=== PATIENT | female | born 1960 | race Caucasian/White ===

== ENCOUNTER → 2021-07-22 11:52 | Outpatient (BNVA) | payer MEDICARE, MEDICAID, SELFPAY | PROVIDERS: Visit Provider Nurse Practitioner Family | DX: Z20.822 Contact with and (suspected) exposure to COVID-19 (principal); R05 Cough; R06.02 Shortness of breath | CPT/HCPCS: 71046; 87635 ==

== ENCOUNTER → 2021-08-31 12:00 | Outpatient (BNVA) | payer MEDICARE, MEDICAID, SELFPAY | PROVIDERS: Visit Provider Nurse Practitioner Family | DX: N39.0 Urinary tract infection, site not specified (principal); A49.9 Bacterial infection, unspecified; R11.0 Nausea; R10.2 Pelvic and perineal pain; R30.0 Dysuria; R19.15 Other abnormal bowel sounds | CPT/HCPCS: 74018; 81003; 87086 ==

== ENCOUNTER → 2022-10-19 10:34 | Outpatient (BNVA) | payer MEDICARE, MEDICAID, SELFPAY | PROVIDERS: PCP Family Medicine; Visit Provider Family Medicine | DX: Z79.899 Other long term (current) drug therapy (principal); F41.9 Anxiety disorder, unspecified; M54.16 Radiculopathy, lumbar region; F32.9 Major depressive disorder, single episode, unspecified | CPT/HCPCS: 85025 ==

== ENCOUNTER → 2022-10-20 09:59 | Outpatient (BNVA) | payer MEDICARE, MEDICAID, SELFPAY | PROVIDERS: PCP Family Medicine; Visit Provider Family Medicine | DX: F32.9 Major depressive disorder, single episode, unspecified (principal); F41.9 Anxiety disorder, unspecified; M54.16 Radiculopathy, lumbar region; Z79.899 Other long term (current) drug therapy | CPT/HCPCS: 80053; 80307; 83036; 84443; 85025 ==

== ENCOUNTER 2022-11-06 15:47 | Outpatient (CLI) | payer MEDICARE, MEDICAID, SELFPAY | END 2022-11-06 15:48 | disposition home or self-care (01) | LOC: LAB 15:54 | PROVIDERS: PCP Family Medicine; Visit Provider Family Medicine | DX: F41.9 Anxiety disorder, unspecified (principal) | CPT/HCPCS: 36415 ==

== ENCOUNTER → 2023-04-13 10:50 | Outpatient (BNVA) | payer MEDICARE, MEDICAID, SELFPAY | PROVIDERS: PCP Family Medicine; Visit Provider Nurse Practitioner | DX: R69 Illness, unspecified (principal) | CPT/HCPCS: 87400; 87426 ==

== ENCOUNTER → 2023-04-18 10:24 | Outpatient (BNVA) | payer MEDICARE, MEDICAID, SELFPAY | PROVIDERS: PCP Family Medicine; Visit Provider Family Medicine | DX: R06.2 Wheezing (principal) | CPT/HCPCS: 71046 ==

== ENCOUNTER 2023-04-18 12:17 | Emergency (ER) | payer MEDICARE, SELFPAY ==
[2023-04-18 12:20] VITALS: BP 151/96; PULSE 88; RESP 16; TEMP 36.6; O2SAT 92; BMI 24.8
--- NOTE | 2023-04-18 12:53 | XR_ITS ---
WS: [id number] Exam: XR chest 1V portable [id number] Date/Time of Exam: 04/18/2023 12:55 PM Reason For Exam: cough wheeze Comparison with earlier exam performed on the same day at 11:24 AM. The lungs are hyperinflated and clear. Normal cardiomediastinal silhouette. No pleural effusions. Reg ional bony elements are intact. XR/XR chest 1V portable [id number] IMPRESSION: 1. Pulmonary hyperinflation. No acute finding. No change.
--- NOTE | 2023-04-18 12:55 | W.ED.SOB ---
HPI - SOB/Dyspnea General: Chief Complaint: Shortness of Breath/Dyspnea Stated Complaint: Respiratory Distress Time Seen by Provider: 04/18/23 12:19 Source: patient Mode of arrival: EMS Limitations: no limitations History of Present Illness: HPI Narrative: This patient was transferred to the emergency department via EMS from a local clinic. She has a history of COPD and remains a tobacco user. She states over the past week she has had increasing nonproductive cough, decreased appetite, increased wheezing and shortness of breath. She has had no sustained chest pains and is unaware of any fevers. She states her daughter who lives with her is also been sick. She denies any recent travel, exposure to infectious disease other than what was previously noted etc. She has no history of cardiovascular disease or heart failure. She denies any sustained chest pain. She states that she sleeps fairly well at night although occasionally she gets woken with coughing. Dates she has used her inhaler but not today. She did apparently receive updrafts via EMS prior to arrival. MD elicited complaint: cough Pertinent past history: COPD Timing: progressively worsening Severity: moderate Exacerbating factors: coughing Known history of: COPD Associated symptoms: Deny abdominal pain, chest pain, dizziness, extremity pain, fever(s), lightheadedness, nausea, palpitations, syncope or vomiting Related Data: Home oxygen amount: none Review of Systems Const: Reports: change in appetite; Denies: fever(s) or chills ENMT: Reports: nasal congestion; Denies: odynophagia or nasal discharge Card: Denies: chest pain, palpitations, irregular heart rhythm, lightheadedness, syncope or pre-syncope Resp: Reports: non-productive cough and wheezing; Denies: dyspnea or stridor GI: Denies: abdominal pain, nausea, vomiting or diarrhea : Denies: flank pain, difficulty voiding, dysuria or urinary frequency Musc: Denies: neck pain, back pain, extremity pain or extremity swelling Skin/Breast: Denies: rash Neuro: Denies: headache(s), numbness in extremities, weakness in extremities, dizziness or vertigo All/Imm: Denies: urticaria, throat swelling or tongue swelling PFSH ED PFSH: Medical History Anxiety Chronic hip pain Conversion disorder COPD (chronic obstructive pulmonary disease) Depression Dysuria Exposure to confirmed case of COVID-19 Fatigue GERD (gastroesophageal reflux disease) Hypoactive bowel sounds Insomnia Lower respiratory infection Lumbago syndrome Medication management Nausea Pelvic pain Shortness of breath UTI (urinary tract infection), bacterial Vitamin D deficiency Social History Smoking and tobacco status: current every day smoker Physical Exam Narrative: EXAM NARRATIVE: She is awake and alert she answers questions appropriately and speaks in relatively complete sentences without dyspnea. Const: COMMON NORMALS: no acute distress, average body habitus, patient oriented x3, healthy appearing and alert GENERAL APPEARANCE: cooperative HENMT: COMMON NORMALS: normocephalic, Normal nasal mucous membranes and turbinates present and moist oral mucous membranes HEAD & SCALP: normocephalic NOSE: Normal nasal mucous membranes and turbinates present Eye: COMMON NORMALS: Equal, round and reactive pupils present, EOMs intact bilaterally, conjunctivae normal and no scleral icterus CONJUNCTIVA: Yes conjunctivae normal PUPIL: Yes Equal, round and reactive pupils present Neck/C-Spine: COMMON NORMALS: full ROM, no lymphadenopathy and no JVD Chest: COMMONS NORMALS: normal inspection of the chest Resp: COMMON NORMALS: No retractions and No use of accessory muscles AUSCULTATION: crackles, rhonchi and wheezes Cardio: COMMON NORMALS: no JVD, regular rate, regular rhythm, No murmurs present (Cardio) and Peripheral pulses 2+ throughout RATE: regular rate RHYTHM: regular rhythm PERIPHERAL PULSES: Peripheral pulses 2+ throughout GI: COMMON NORMALS: Normal to inspection, nondistended, normoactive bowel sounds present, Soft to palpation and non-tender PALPATION: Yes Soft to palpation : COMMON NORMALS: Yes no CVA tenderness BLADDER/KIDNEY EXAM: Yes no CVA tenderness Back/Pelvis: COMMON NORMALS: no CVA tenderness, thoracic and lumbar spine normal to inspection, no thoracic nor lumbar tenderness and thoraco-lumbar ROM normal Extremity: COMMON NORMALS: normal to inspection, capillary refill normal, no joint enlargement, no clubbing, cyanosis or edema, no calf tenderness and no pedal edema Neuro: COMMON NORMALS: patient oriented x3, moves all extremities, no focal motor deficits and no sensory deficits noted SENSORIUM/ORIENTATION: Yes alert CRANIAL NERVES: Yes CN normal except as noted Psych: COMMON NORMALS: mental status grossly normal Skin: COMMON NORMALS: no rashes or lesions noted and turgor normal GENERAL SKIN EXAM: no rashes or lesions noted and turgor normal Course Reevaluation(s): Reevaluation #1: Patient ambulated about the emergency department off oxygen and maintain oxygen saturation greater than 90%. Examination revealed her to be comfortable without any dyspnea with conversation and no accessory muscle usage. Reauscultation of her chest revealed no wheezing or stridor. Chest x-ray was reassuring and laboratories were also reassuring. We discussed treatment options and given her current response to treatment I think is appropriate for us to continue her management on an outpatient basis. She has DuoNeb at home to use and we will increase her prednisone to 60 mg daily for the next 7 days and then back to her usual dose. She is also has nasal steroid inhaler etc. She has no infiltrative process she is afebrile because of her history of COPD with exacerbation we will put her on doxycycline for 7 days. Time: 16:10 Vital Signs: Vital signs: Vital Signs Temperature 97.8 F 04/18/23 12:20 Pulse Rate 86 04/18/23 14:58 Respiratory Rate 18 04/18/23 15:57 Blood Pressure 133/95 04/18/23 14:58 Pulse Oximetry 90 04/18/23 15:57 Oxygen Delivery Me thod Room Air 04/18/23 15:57 Oxygen Flow Rate 2 04/18/23 14:58 MDM - SOB/Dyspnea Medical Decision Making Patient with a known history of COPD was referred to the emergency department for further evaluation and treatment as indicated. She has been having increasing wheezing and nonproductive cough without fevers. She had no chest pain and no history of cardiovascular issues. She apparently was seen in outpatient clinic and then sent to the emergency department. Upon evaluation here she had expiratory wheezes and rhonchi. No other significant findings on her clinical examination. Differential diagnoses included exacerbation COPD pneumonia primary likely etiologies of her current presentation. Chest x-ray was reassuring. Laboratories were also reassuring. She remained stable and received the benefit of a prolonged updraft treatment, IV fluids and continued reassessment. Her condition improved with treatment in the emergency department her chest x-ray did not reveal any signs of pneumonia we discussed treatment options and she at this point time is stable to continue treatment on an outpatient basis for an exacerbation of COPD without evidence of pneumonia or other worrisome conditions. We discussed return precautions in detail. She is stable at this time. Medical Records I reviewed the patient's medical records. Lab Data I reviewed the patient's lab results. 04/18/23 12:42 04/18/23 12:42 Labs/Radiology: Radiology Impressions Chest X-Ray 04/18/23 12:53 IMPRESSION: 1. Pulmonary hyperinflation. No acute finding. No change. Laboratory Results WBC 9.2 10^3/uL (4.0-10.0) 04/18/23 12:42 RBC 4.69 10^6/uL (4.1-5.3) 04/18/23 12:42 Hgb 13.5 g/dL (11.5-15.3) 04/18/23 12:42 Hct 42.0 % (37.0-47.0) 04/18/23 12:42 MCV 89.6 fl (81-99) 04/18/23 12:42 MCH 28.8 pg (28.0-34.0) 04/18/23 12:42 MCHC 32.1 g/dL (30.0-36.0) 04/18/23 12:42 RDW 15.0 % (12.1-15.1) 04/18/23 12:42 Plt Count 368 10^3/cmm (130-400) 04/18/23 12:42 MPV 11.0 fL (7.4-10.4) H 04/18/23 12:42 Neut % (Auto) 51.4 % 04/18/23 12:42 Lymph % (Auto) 40.9 % 04/18/23 12:42 Benson % (Auto) 6.7 % 04/18/23 12:42 Eos % (Auto) 0.2 % 04/18/23 12:42 Baso % (Auto) 0.3 % 04/18/23 12:42 Neut # (Auto) 4.71 10^3/uL (1.8-7.7) 04/18/23 12:42 Lymph # (Auto) 3.8 10^3/uL (0.8-4.8) 04/18/23 12:42 Benson # (Auto) 0.6 10^3/uL (0.2-0.9) 04/18/23 12:42 Eos # (Auto) 0.0 10^3/uL (0.0-0.8) 04/18/23 12:42 Baso # (Auto) 0.0 10^3/uL (0.0-0.1) 04/18/23 12:42 Nucleated RBC % (auto) 0 % 04/18/23 12:42 Nucleated RBCs # 0.0 /100WBC 04/18/23 12:42 Sodium 140 mmol/L (136-145) 04/18/23 12:42 Potassium 3.3 mmol/L (3.5-5.1) L 04/18/23 12:42 Chloride 105 mmol/L (98-107) 04/18/23 12:42 Carbon Dioxide 22 mmol/L (22-29) 04/18/23 12:42 Anion Gap 16.3 (5-19) 04/18/23 12:42 BUN 22 mg/dL (8-23) 04/18/23 12:42 Creatinine 0.8 mg/dL (0.5-0.9) 04/18/23 12:42 GFR Calculation 72.2 mL/min (90-130) L 04/18/23 12:42 Glucose 104 mg/dL (65-115) 04/18/23 12:42 Calculated Osmolality 294 mOsm/kg (285-295) 04/18/23 12:42 Calcium 9.2 mg/dL (8.5-10.5) 04/18/23 12:42 Total Bilirubin 0.2 mg/dL (0.15-1.2) 04/18/23 12:42 AST 18 U/L (0-32) 04/18/23 12:42 ALT 15 U/L (0-33) 04/18/23 12:42 Alkaline Phosphatase 120 U/L (35-105) H 04/18/23 12:42 Total Protein 7.5 g/dL (6.6-8.7) 04/18/23 12:42 Albumin 4.5 g/dL (3.5-5.2) 04/18/23 12:42 Globulin 3.0 g/dL (1.3-4.6) 04/18/23 12:42 Discharge Plan Discharge Patient Disposition: Home Clinical Impression: Acute exacerbation of chronic obstructive airways disease Condition: Stable Prescriptions: New doxycycline hyclate 100 mg capsule 100 mg PO BID 7 Days Qty: 14 0RF prednisone 20 mg tablet 20 mg PO BID 7 Days Qty: 14 0RF No Action ipratropium-albuterol 0.5 mg-3 mg(2.5 mg base)/3 mL solution for nebulization 3 ml inhalation Q4H PRN (Reason: wheezing) 30 Days Qty: 90 0RF cyanocobalamin (vitamin B-12) 1,000 mcg/mL kit 1,000 mcg IM .weekly 28 Days Qty: 4 0RF melatonin 5 mg capsule 5 mg PO DAILY PRN (Reason: sleep) 30 Days Qty: 30 1RF benzonatate 200 mg capsule 200 mg PO TID PRN (Reason: cough) Qty: 30 0RF fluticasone propionate [Flonase Allergy Relief] 50 mcg/actuation spray,suspension 1 spray intranasal DAILY Qty: 16 0RF Rx Instructions: administer into each nostril albuterol sulfate [ProAir HFA] 90 mcg/actuation HFA aerosol inhaler 2 puff inhalation Q6H PRN (Reason: shortness of breath or wheezing) Qty: 8.5 3RF fluticasone propion-salmeterol [Advair Diskus] 100-50 mcg/dose blister with device 1 inh inhalation BID Qty: 60 3RF clonazepam 1 mg tablet 1 mg PO Q8H PRN (Reason: anxiety) 30 Days Qty: 90 3RF Rx Instructions: donot fill before 03/20/2023 citalopram 40 mg tablet 40 mg PO DAILY 90 Days Qty: 90 1RF zolpidem 10 mg tablet 10 mg PO .nightly 30 Days Qty: 30 3RF pantoprazole 20 mg tablet,delayed release (DR/EC) 20 mg PO DAILY 90 Days Qty: 90 1RF gabapentin 600 mg tablet 600 mg PO Q8H 90 Days Qty: 270 1RF oxybutynin chloride 5 mg tablet extended release 24hr 5 mg PO DAILY 30 Days Qty: 30 6RF ceftriaxone 1 gram recon soln 1 g IM ONCE Qty: 1 0RF dexamethasone sodium phosphate 10 mg/mL solution 10 mg IM ONCE Qty: 1 0RF baclofen 5 mg tablet See Rx Instructions .ROUTE .COMPLEX Qty: 60 0RF Dose Instruction: TAKE ONE TABLET BY MOUTH TWICE DAILY NEEDED FOR LOW BACK PAIN FOR 30 DAYS Rx Instructions: TAKE ONE TABLET BY MOUTH TWICE DAILY NEEDED FOR LOW BACK PAIN FOR 30 DAYS meloxicam 7.5 mg tablet See Rx Instructions .ROUTE .COMPLEX Qty: 60 0RF Dose Instruction: TAKE 1 TABLET BY MOUTH TWICE DAILY NEEDED FOR BACK PAIN FOR 30 DAYS Rx Instructions: TAKE 1 TABLET BY MOUTH TWICE DAILY NEEDED FOR BACK PAIN FOR 30 DAYS Discharge Orders: Discharge ED (Routine); Ordered 04/18/23 Ordered By: Armani Preciado Referrals: Brent Ortiz MD [Primary Care Provider] - Discharge Diet: Advance as tolerated Discharge Activity: Increase activity as tolerated Patient Instructions: Opioid Safety, Pain Management Activity Restrictions/Additional Instructions: As we discussed we have recommended that you continue your breathing treatments at home 4-6 times daily as needed for wheezing or shortness of breath. We also prescribed an increased dose of your prednisone to take for the next 7 days. We have also provided a prescription for an antibiotic to take for the next 7 days. It is important you drink at least 1 to 2 quarts of water daily to help keep hydrated. If your symptoms do not continue to improve as we expect or if they worsen anytime with fevers, increasing cough increasing shortness of breath etc. return to this or the nearest emergency department. Coding Level of Care Code ED [employer]ar[employer] Operator for Nancy Huang
[2023-04-18] MEDS: dexamethasone 10 mg/mL INJ IVP (13:06)
[2023-04-18] MEDS: sodium chloride 0.9% 1,000 ML 999 ML IV (13:06)
[2023-04-18 13:12] VITALS: BP 151/98; PULSE 84; RESP 18; O2SAT 94; O2SAT 99
[2023-04-18 13:12] LABS: Basophils % 0.3 %; Eosinophils % 0.2 %; Hemoglobin 13.5 g/dL (11.5-15.3); Lymphocytes # 3.8 10^3/uL (0.8-4.8); Lymphocytes % 40.9 %; Mean Corpuscular HGB Conc 32.1 g/dL (30.0-36.0); Mean Corpuscular Hemoglobin 28.8 pg (28.0-34.0); Mean Corpuscular Volume 89.6 fl (81-99); Monocytes # 0.6 10^3/uL (0.2-0.9); Monocytes % 6.7 %; Neutrophils # 4.71 10^3/uL (1.8-7.7); Neutrophils % 51.4 %; Nucleated Red Blood Cells % 0 %; Platelet Count 368 10^3/cmm (130-400); Red Blood Count 4.69 10^6/uL (4.1-5.3); White Blood Count 9.2 10^3/uL (4.0-10.0)
[2023-04-18] MEDS: ipratropium-albuterol 3 mL Neb 9 ML INHALATION (13:12)
[2023-04-18 13:24] VITALS: PULSE 93
[2023-04-18 13:33] LABS: Alanine Aminotransferase 15 U/L (0-33); Albumin Level 4.5 g/dL (3.5-5.2); Alkaline Phosphatase 120 U/L (35-105); Anion Gap 16.3 (5-19); Aspartate Amino Transferase 18 U/L (0-32); Blood Urea Nitrogen 22 mg/dL (8-23); Calcium 9.2 mg/dL (8.5-10.5); Carbon Dioxide 22 mmol/L (22-29); Chloride 105 mmol/L (98-107); Glomerular Filtration Rate 72.2 mL/min (90-130); Glucose 104 mg/dL (65-115); Osmolality Calculated 294 mOsm/kg (285-295); Potassium 3.3 mmol/L (3.5-5.1); Sodium 140 mmol/L (136-145); Total Bilirubin 0.2 mg/dL (0.15-1.2); Total Protein 7.5 g/dL (6.6-8.7)
[2023-04-18 14:03] LABS: Slide Review Slide Review Perform
[2023-04-18 14:12] VITALS: BP 133/95; PULSE 89; RESP 18; O2SAT 97
[2023-04-18 14:58] VITALS: BP 133/95; PULSE 86; RESP 18; O2SAT 98
[2023-04-18 15:57] VITALS: RESP 18; O2SAT 90
== END 2023-04-18 17:30 | disposition home or self-care (01) ==
PROVIDERS: Emergency Provider Emergency Medicine; PCP Family Medicine
DX: J44.1 Chronic obstructive pulmonary disease with (acute) exacerbation (principal); F17.210 Nicotine dependence, cigarettes, uncomplicated; Z20.822 Contact with and (suspected) exposure to COVID-19; R06.2 Wheezing
CPT/HCPCS: 71045; 71046; 80053; 85025; 87400; 87426; 94640; 96361; 96374; 99284; J1100; J7030

== ENCOUNTER → 2023-07-19 10:18 | Outpatient (BNVA) | payer MEDICARE, SELFPAY | PROVIDERS: PCP Family Medicine; Visit Provider Nurse Practitioner Family | DX: M70.62 Trochanteric bursitis, left hip; M16.0 Bilateral primary osteoarthritis of hip | CPT/HCPCS: 20610; 73523; 99214; J1100; J3301; J3490 ==

== ENCOUNTER → 2023-08-02 13:07 | Outpatient (BNVA) | payer MEDICARE, SELFPAY | PROVIDERS: PCP Family Medicine; Visit Provider Nurse Practitioner Family | DX: M70.61 Trochanteric bursitis, right hip | CPT/HCPCS: 20610; 73502; 99213 ==

== ENCOUNTER 2023-12-31 01:52 | Inpatient (IN) | payer MEDICARE, SELFPAY ==
[2023-12-31] VITALS (102 sets, daily range): BP systolic 88–159; BP diastolic 52–93; PULSE 71–120; RESP 11–27; TEMP 36.2–37.8; O2SAT 83–100
--- NOTE | 2023-12-31 01:57 | P.HP_ITS ---
Providers/Chief Complaint Admitting Physician: Rico Stanley MD Primary Care Provider: SANDOR Barber Chief Complaint: Sepsis / UTI History of Present Illness Silke Camp is a 63 year old female with a past medical history significant for coronary artery disease with history of OH, GERD, conversion disorder, anxiety, depression, tobacco use disorder, and COPD who initially presented to an outside hospital at [facility] with left inguinal and left low back pain x 2 to 3 days. She endorses associated symptoms of rigors, myalgias, fatigue, nausea and poor oral intake. She describes the pain as shooting down into her left inguinal area. She describes it as severe at times. She received Toradol at the outside hospital which she thinks may have upset her stomach. Denies other alleviating or aggravating factors. She denies any recent UTIs. Denies any recent antibiotic use. At the outside hospital, patient was found to have sepsis. Her heart rate was persistently above 100. Her blood pressure was soft with readings in the 90s-100s/50s-60s. Labs revealed a CBC of 15.3>8.6/28.4<397, BMP 137/4.5/100/16/16/0.82. D-dimer 4.6. Troponin within normal limits. Lactic acid 6.9. Urinalysis with 1+ leukocyte Estrace, nitrite positive, 2+ protein, 11-25 WBCs, 3+ bacteria. RSV, rapid flu, and COVID-19 were negative. Chest x- ray showed interstitial prominence which was read by radiologist as could be seen with volume overload, viral illness, or bronchiolitis; no focal consolidations. CT abdomen/pelvis without contrast showed no evidence of obstructive uropathy or urolithiasis. There is mild asymmetric left perinephric stranding which is nonspecific but could be secondary to infection/pyelonephritis. CTA of the chest showed no pulmonary embolism but did reveal advanced emphysematous changes as well as a pulmonary nodules with the largest measuring up to 9 mm. Blood cultures were obtained. She was treated with Rocephin, Toradol, and 2 L of IV fluids bolus. Patient denies a known history of anemia. Her hemoglobin in March 2023 was 13.5 in [facility]. Patient does note that she did have a heart attack in August 2023. She was treated at [facility]. She states that she did receive a stent and was placed on blood thinners at that time. She denies any blood in her stool. She denies melena. She reports she had a colonoscopy about 3 years ago [place] that had some benign polyps but otherwise was unremarkable. She denies any family history of known anemia. Review of Systems Narrative: Endorses fatigue for the past couple months. Endorses shortness of breath with chronic cough, otherwise a complete review of systems was obtained and is negative except as stated in HPI. Medications/Allergies Home Medications Medication Instructions Recorded Confirmed Last Taken Type melatonin 5 mg capsule 5 mg PO DAILY PRN sleep 30 days 11/25/21 12/31/23 Unknown Rx #30 caps fluticasone 100 mcg-salmeterol 50 1 inh inhalation BID #60 ea 10/19/22 12/31/23 12/30/23 17:30 Rx mcg/dose blistr powdr for inhalation (Advair Diskus) pantoprazole 20 mg tablet,delayed 20 mg PO DAILY 90 days #90 tabs 03/16/23 12/31/23 12/30/23 11:00 Rx release ipratropium 0.5 mg-albuterol 3 mg 3 ml inhalation QID PRN wheezing 04/19/23 12/31/23 Unknown Rx (2.5 mg base)/3 mL nebulization #90 mL soln nebulizer machine #1 ea 04/19/23 12/31/23 Unknown Rx gabapentin 600 mg tablet 600 mg PO Q8H 90 days #270 tabs 08/29/23 12/31/23 12/30/23 11:00 Rx aspirin 81 mg chewable tablet 81 mg PO DAILY 90 days #90 tabs 09/04/23 12/31/23 12/30/23 11:00 Rx atorvastatin 80 mg tablet 80 mg PO DAILY 90 days #90 tabs 09/04/23 12/31/23 12/30/23 11:00 Rx losartan 50 mg tablet 50 mg PO DAILY 09/04/23 12/31/23 12/30/23 11:00 History metoprolol succinate 25 mg 12.5 mg (1/2 x 25 mg) PO DAILY 90 09/04/23 12/31/23 12/30/23 11:00 Rx tablet,extended release 24 hr days #90 tabs nitroglycerin 0.4 mg sublingual 0.4 mg sublingual Q5M PRN chest 09/04/23 12/31/23 Unknown Rx tablet pain 90 days #90 tabs prasugrel 10 mg tablet (Effient) 10 mg PO DAILY 90 days #90 tabs 09/04/23 12/31/23 12/30/23 11:00 Rx albuterol sulfate 90 mcg/actuation 2 puff inhalation Q6H PRN 11/21/23 12/31/23 Unknown Rx aerosol inhaler (ProAir HFA) shortness of breath or wheezing #8.5 grams citalopram 40 mg tablet 40 mg PO DAILY 90 days #90 tabs 11/21/23 12/31/23 12/30/23 11:00 Rx clonazepam 1 mg tablet 1 mg PO Q8H PRN anxiety 30 days 11/21/23 12/31/23 Unknown Rx #90 tabs fluticasone propionate 50 1 spray intranasal DAILY #16 grams 11/21/23 12/31/23 Unknown Rx mcg/actuation nasal spray,suspension (Flonase Allergy Relief) zolpidem 10 mg tablet 10 mg PO .nightly 30 days #30 tabs 11/21/23 12/31/23 Unknown Rx Allergies Allergy/AdvReac Type Severity Reaction Status Date / Time No Known Allergies Allergy Verified 12/31/23 01:59 PFSH Acute PFSH: Medical History Needs smoking cessation education STEMI (ST elevation myocardial infarction) Greater trochanteric bursitis of right hip Greater trochanteric bursitis of left hip Hip osteoarthritis PNA (pneumonia) COPD exacerbation Diffuse wheezing Overactive bladder Stress incontinence Sciatica Dental infection Sinusitis Encounter for smoking cessation counseling Allergic rhinitis Lumbar radiculopathy Colon polyp Patient reports several colon polyps removed at [place], and states she has not had followup. History of ST elevation myocardial infarction (STEMI) STEMI with Stent Placement 08/31/2023 Treated at [facility] syndrome Vitamin D deficiency Fatigue Medication management UTI (urinary tract infection), bacterial Dysuria Pelvic pain Nausea Hypoactive bowel sounds Lower respiratory infection Shortness of breath Exposure to confirmed case of COVID-19 Chronic hip pain Insomnia GERD (gastroesophageal reflux disease) Conversion disorder Anxiety Depression COPD (chronic obstructive pulmonary disease) Surgical History History of heart artery stent Family History Father No problems noted. Denies family history of Anemia Social History Smoking and tobacco/nicotine status: current every day tobacco/nicotine user Alcohol intake: never Substance/Drug Use: never Physical Exam Narrative: General: Patient is awake. Appears fatigued. Pleasant. Head: Normocephalic. Atraumatic. EOM intact. Dry mucous membranes. Neck: No JVD. Cardiovascular: Tachycardic with regular rhythm. No gallops. No murmurs. No peripheral edema. Lungs: Breath sounds diminished bilateral bases, no use of accessory muscles, no crackles or wheezes. Moderate air movement. On nasal cannula support. Cough segmentally throughout exam. Skin: No jaundice. No rashes. Abdomen: Normal bowel sounds, abdomen soft and nontender. Back: Left CVA tenderness present. Rectal: Rectal exam not performed since no symptoms indicated blood loss. Extremities: No cyanosis or clubbing. Musculoskeletal: No swollen or erythematous joints. Neurological: Moves all 4 extremities. No myoclonus. A&P Assessment and plan (1) Sepsis: SIRS: Tachycardic, leukocytosis Source: Acute complicated urinary tract infection complicated by left-sided pyelonephritis Endorgan damage: Acute hypoxia, lactic acidosis > 6 Blood culture Urinalysis with urine culture Status post Rocephin outside hospital, will continue Status post 2 L IV fluid at outside hospital, patient's weight is 66 kg, she is exceeded the 30 mL/kg BW Telemetry monitoring Strict I's and O's Supportive care Qualifiers: Sepsis type: sepsis due to unspecified organism Sepsis acute organ dysfunction status: with acute organ dysfunction Severe sepsis acute organ dysfunction type: acute respiratory failure Acute respiratory failure type: with hypoxia Severe sepsis shock status: without septic shock Qualified Code(s): A41.9 - Sepsis, unspecified organism; R65.20 - Severe sepsis without septic shock; J96.01 - Acute respiratory failure with hypoxia (2) Hypoxia: Acute hypoxia in the setting of sepsis; history of COPD, heart disease Obtain chest x-ray, prior radiology read from outside hospital on there x-ray appreciated Check NT proBNP (3) Normocytic anemia: Normocytic anemia Broad differential Awaiting home med update, suspect antiplatelet treatment given recent stent Patient denies active bleeding, denies GI blood loss, denies melena Admission labs pending here, further workup pending CBC result (4) Coronary artery disease: Patient reports myocardial infarction treated at [facility] in August Her post hospital follow-up visit with Dr. Ortiz reviewed Unable to locate the records from this hospitalization in the EMR Plan to continue chronic cardiac medications after home list is updated Qualifiers: Coronary Disease-Associated Artery/Lesion type: resighini artery [place] vs. transplanted heart: resighini heart Associated angina: unspecified whether angina present Qualified Code(s): I25.10 - Atherosclerotic heart disease of resighini coronary artery without angina pectoris (5) COPD (chronic obstructive pulmonary disease): Patient with cough Chest x-ray ordered Supplemental oxygen as needed Breathing treatments as needed Qualifiers: COPD type: unspecified COPD Qualified Code(s): J44.9 - Chronic obstructive pulmonary disease, unspecified (6) Tobacco use: Reports she is cutting back on cigarette use Would benefit from cessation (7) Depression: Continue home meds, pending home medication list update Qualifiers: Depression Type: unspecified Qualified Code(s): F32.A - Depression, unspecified Plan DVT prophylaxis: Heparin CODE STATUS: Full code Attestations Medical Necessity Statement*: Patient transferred from outside hospital after presenting with low back and abdominal pains, found to have sepsis from urinary source with expected hospitalization to cross 2 midnights for appropriate treatment of sepsis. Coding Level of Care Code Acute Code for [facility] Fwd Diagnoses Sepsis with acute hypoxic respiratory failure without septic shock, due to unspecified organism A41.9; R65.20; J96.01 Sepsis type: sepsis due to unspecified organism Sepsis acute organ dysfunction status: with acute organ dysfunction Severe sepsis acute organ dysfunction type: acute respiratory failure Acute respiratory failure type: with hypoxia Severe sepsis shock status: without septic shock Hypoxia R09.02 Normocytic anemia D64.9 Coronary artery disease involving resighini coronary artery of resighini heart, unspecified whether angina present I25.10 Coronary Disease-Associated Artery/Lesion type: resighini artery [place] vs. transplanted heart: resighini heart Associated angina: unspecified whether angina present Chronic obstructive pulmonary disease, unspecified COPD type J44.9 COPD type: unspecified COPD Tobacco use Z72.0 Depression, unspecified depression type F32.A Depression Type: unspecified
[2023-12-31] MEDS: acetaminophen 325 mg Tablet 650 MG PO ×3 (02:39→19:46)
[2023-12-31] MEDS: ondansetron 2 mg/ML SDV 2 mL 4 MG IVP (02:39)
--- NOTE | 2023-12-31 02:43 | XRR_ITS ---
PROCEDURE INFORMATION: Exam: XR Chest Exam date and time: 12/31/2023 5:25 AM Age: 63 years old Clinical indication: Shortness of breath; Additional info: SOB, evaluate for pulmonary edema TECHNIQUE: Imaging protocol: Radiologic exam of the chest. Views: 1 view. COMPARISON: CR XR chest 1V portable [id number] 04/18/2023 12:58 PM FINDINGS: Lungs: Hypoventilatory changes at the left lung base. Mild chronic interstitial prominence. Pleural spaces: Unremarkable. No pleural effusion. No pneumothorax. Heart/Mediastinum: Unremarkable. No cardiomegaly. Bones/joints: Unremarkable. XR/XR chest 1V portable [id number] IMPRESSION: No acute cardiopulmonary disease.
[2023-12-31 03:07] LABS: Basophils # 0.1 10^3/uL (0.0-0.1); Basophils % 0.4 %; Hematocrit 24.9 % (36-47); Lymphocytes # 0.9 10^3/uL (0.8-4.8); Lymphocytes % 4.1 %; Mean Corpuscular HGB Conc 29.3 g/dL (30-55); Mean Corpuscular Hemoglobin 25.2 pg (27-33); Mean Corpuscular Volume 85.9 fl (85-98); Mean Platelet Volume 9.9 fL (7.4-10.4); Monocytes # 0.6 10^3/uL (0.2-0.9); Monocytes % 2.5 %; Neutrophils # 20.92 10^3/uL (1.8-7.7); Neutrophils % 92.5 %; Nucleated Red Blood Cells % 0 %; Platelet Count 311 10^3/cmm (157-399); Red Cell Distribution Width 15.6 % (12.1-15.1); White Blood Count 22.64 10^3/uL (3.29-11.43)
[2023-12-31 03:37] LABS: NT Pro B Type Natriuretic Pept 2517 pg/mL (0-125); Procalcitonin 10.81 ng/mL (0-0.5)
[2023-12-31 03:48] LABS: Alanine Aminotransferase 29 U/L (0-33); Albumin Level 3.5 g/dL (3.5-5.2); Alkaline Phosphatase 151 U/L (35-105); Aspartate Amino Transferase 31 U/L (0-32); Blood Urea Nitrogen 13 mg/dL (8-23); Calcium 7.9 mg/dL (8.5-10.5); Carbon Dioxide 17 mmol/L (22-29); Chloride 106 mmol/L (98-107); Globulin 2.8 g/dL (1.3-4.6); Glomerular Filtration Rate 62.8 mL/min (90-130); Glucose 118 mg/dL (65-115); Magnesium 1.6 mg/dL (1.7-2.3); Osmolality Calculated 283 mOsm/kg (285-295); Phosphorus 2.3 mg/dL (2.5-4.5); Sodium 136 mmol/L (136-145); Total Bilirubin 0.3 mg/dL (0.15-1.2); Total Protein 6.3 g/dL (6.6-8.7)
[2023-12-31 03:54] LABS: Ferritin 25 ng/mL (15-150); Iron 8 ug/dL (37-145); Lactate Dehydrogenase 179 U/L (135-214); Percent Saturation 2.5 % (20-50); Total Iron Binding Capacity 311 mcg/dl; Unsaturated Iron Binding 303 ug/dL (112-347)
[2023-12-31] MEDS: pantoprazole 40 mg SDV 80 MG IVP (04:01)
[2023-12-31] MEDS: HYDROmorphone 1 mg/mL INJ 1 mL 0.2 MG IVP (04:02)
[2023-12-31 04:10] LABS: Vitamin B12 747 pg/mL (232-1245)
[2023-12-31] MEDS: gabapentin 300 mg Capsule 600 MG PO ×3 (04:11→19:39)
[2023-12-31 04:45] LABS: Reflex Lactate Order REFLEX LACTIC ORDERD
[2023-12-31 06:14] LABS: Lactic Acid level (Lactate) 0.9 mmol/L (0.5-2.2)
[2023-12-31] MEDS: budesonide 0.5 mg/2 mL Neb INHALATION ×2 (08:13→19:57)
[2023-12-31] MEDS: ipratropium-albuterol 3 mL Neb INHALATION (08:13)
[2023-12-31] MEDS: pantoprazole 40 mg SDV IVP ×2 (08:54→20:46)
[2023-12-31] MEDS: atorvastatin 40 mg Tablet 80 MG PO (08:55)
[2023-12-31] MEDS: prasugrel 10 MG Tablet PO (08:55)
[2023-12-31] MEDS: aspirin 81 mg Chew Tablet PO (08:55)
[2023-12-31] MEDS: citalopram 20 mg Tablet 40 MG PO (08:55)
[2023-12-31] MEDS: sucralfate 1 gm/10 mL Oral Liq UDC PO ×3 (08:55→19:39)
[2023-12-31 09:40] LABS: Add Urine Microscopic? YES; Bilirubin Urine Neg (Negative); Blood Urine 2+ (Negative); Glucose Urine UA Norm (Normal); Ketones Urine 1+ (Negative); Leukocyte Esterase Urine 1+ (Negative); Nitrate Urine Positive (Negative); Protein Urine 1+ (Negative); Specific Gravity, Urine 1.015 (1.005-1.030); Urine Appearance SL Hazy (CLEAR); Urine Color Yellow (Yellow); Urobilinogen Urine Neg (Negative); pH Urine 5 (5-7)
[2023-12-31 09:41] LABS: Add Urine Culture? Yes; Bacteria Urine 1+ /hpf; Hyaline Casts Urine RARE /lpf; Mucus Urine TRACE /hpf; RBC Urine 0-4 /hpf (0-2); Squamous Epithelial Cell Urine 0-4 /hpf (0-5); WBC Urine 55-80 /hpf (0-5)
[2023-12-31] MEDS: cefTRIAXone 2,000 MG in sodium chloride 0.9% (plus) 50 ML 100 MG IV (10:15)
[2023-12-31] MEDS: lactated ringers 500 ML 999 ML IV (11:32)
[2023-12-31] MEDS: midodrine 5 mg TABLET 10 MG PO ×2 (11:33→19:39)
[2023-12-31 11:56] LABS: Hematocrit 28.2 % (36-47)
[2023-12-31 12:10] LABS: Lactic Sepsis W/Reflex 1.3 mmol/L (0.5-2.2)
[2023-12-31] MEDS: meropenem 1,000 MG in sodium chloride 0.9% (plus) 50 ML 100 MG IV ×2 (12:37→20:46)
[2023-12-31] MEDS: HYDROmorphone 1 mg/mL INJ 1 mL 0.5 MG IVP ×2 (12:44→16:22)
--- NOTE | 2023-12-31 13:51 | PC.NURSE ---
Daughter's(Aleacia) updated phone number [phone]
--- NOTE | 2023-12-31 14:46 | PM.PN ---
Subjective Subjective: Patient was seen this morning, she continues to feel nauseous, feels unwell, fatigue, malaise, denies any fevers but does have chills, denies any bloody or black stools, she is taking her aspirin and Effient, denies any history of GI bleeds, no bloody or black stools, she recently had a stent placed to her LAD last year, denies any active chest pain, Vitals/I&O/Wt Last Vital Signs Temp 98.0 F 12/31/23 12:11 Pulse 72 12/31/23 12:11 Resp 18 12/31/23 12:44 BP 119/71 12/31/23 12:48 Pulse Ox 93 12/31/23 12:11 O2 Del Method Nasal Cannula 12/31/23 12:11 O2 Flow Rate 2 12/31/23 08:18 12/30/23 12/31/23 12/31/23 22:59 06:59 14:59 Intake Total 0 / 0 1310 / 1310 Output Total 200 / 200 400 / 400 Balance -200 / -200 910 / 910 Weight last 48 hrs Weight 66.678 kg Weight 66.678 kg Physical Exam Const: COMMON NORMALS: no acute distress and patient oriented x3 Resp: COMMON NORMALS: normal respiratory effort, No retractions, No use of accessory muscles and clear to auscultation bilaterally AUSCULTATION: clear to auscultation bilaterally Cardio: COMMON NORMALS: regular rate, regular rhythm, S1 normal heart sound present and S2 normal heart sound present RATE: regular rate RHYTHM: regular rhythm HEART SOUNDS: S1 normal heart sound present and S2 normal heart sound present GI: COMMON NORMALS: Normal to inspection, nondistended, normoactive bowel sounds present and non-tender Extremity: COMMON NORMALS: no pedal edema Neuro: COMMON NORMALS: patient oriented x3 Psych: COMMON NORMALS: mental status grossly normal Data 12/31/23 14:09 12/31/23 02:46 Micro: Microbiology 12/31/23 04:19 Blood Culture - Preliminary Blood SPECIMEN COLLECTED 12/31/23 04:15 Blood Culture - Preliminary Blood SPECIMEN COLLECTED A&P Assessment and plan (1) Sepsis: SIRS: Criteria met Source: Acute complicated urinary tract infection complicated by left-sided pyelonephritis Endorgan damage: Acute hypoxia, lactic acidosis > 6 Blood culture Urinalysis with urine culture Status post Rocephin outside hospital, will expand antibiotic coverage to meropenem She continues to have hypotension on MedSurg, will give her a liter bolus, she is receiving 1 unit PRBC, will start on midodrine 10 mg 3 times daily Telemetry monitoring Strict I's and O's Supportive care Qualifiers: Sepsis type: sepsis due to unspecified organism Sepsis acute organ dysfunction status: with acute organ dysfunction Severe sepsis acute organ dysfunction type: acute respiratory failure Acute respiratory failure type: with hypoxia Severe sepsis shock status: without septic shock Qualified Code(s): A41.9 - Sepsis, unspecified organism; R65.20 - Severe sepsis without septic shock; J96.01 - Acute respiratory failure with hypoxia (2) Hypoxia: Acute hypoxia in the setting of sepsis; history of COPD, heart disease Current active smoker (3) Normocytic anemia: Normocytic anemia Broad differential History of STEMI, requiring transfer to tertiary level center, for stent placement to LAD (4) Coronary artery disease: Patient reports myocardial infarction treated at [facility] in August Her post hospital follow-up visit with Dr. Ortiz reviewed Unable to locate the records from this hospitalization in the EMR Plan to continue chronic cardiac medications after home list is updated Qualifiers: Coronary Disease-Associated Artery/Lesion type: yuhaaviatam artery [place] vs. transplanted heart: yuhaaviatam heart Associated angina: unspecified whether angina present Qualified Code(s): I25.10 - Atherosclerotic heart disease of yuhaaviatam coronary artery without angina pectoris (5) COPD (chronic obstructive pulmonary disease): Patient with cough Chest x-ray ordered Supplemental oxygen as needed Breathing treatments as needed Qualifiers: COPD type: unspecified COPD Qualified Code(s): J44.9 - Chronic obstructive pulmonary disease, unspecified (6) Tobacco use: Reports she is cutting back on cigarette use Would benefit from cessation (7) Depression: Continue home meds, pending home medication list update Qualifiers: Depression Type: unspecified Qualified Code(s): F32.A - Depression, unspecified (8) Acute anemia: - Acute anemia -Multifactorial, from GI bleed and or septic shock, sepsis (9) GI bleed: - Concerns for slow GI bleed -She denies any bloody or black stools, no active hemorrhage -She does have evidence of iron deficiency anemia -Highly suspicious for slow GI bleed -Protonix 40 IV twice daily, Carafate 1 g every 6 hours -Monitor hemodynamics closely -She is on aspirin and Effient for recent history of LAD stent has received 4 doses this morning -Will consider to hold versus continue based on clinical progress, as this is a difficult decision on the one hand she has a high risk of adverse cardiovascular event stent closure if aspirin Effient worse to be stopped but on the other hand she has a high risk of worsening of her GI bleeding, anemia, hypotension if they are continued -I had a detailed discussion with patient at bedside about this difficult decision, shared decision making, she is agreeable to hold aspirin and Effient if necessary -Spoke to general surgery, Dr. Molina, consider EGD and colonoscopy based on clinical progress (10) Shock: - Multifactorial -Septic shock from pyelonephritis as above elevated lactic acid -Component of acute anemia, possible hemorrhagic shock related to GI bleed -Some component related to hypovolemia -Will receive 500 mL bolus on MedSurg -Receiving a unit of blood -Started on midodrine 10 mg 3 times daily -Monitor blood pressures closely -If she remains hypotensive we will move her down to the ICU for pressors (11) Pyelonephritis: Plan DVT prophylaxis: Heparin CODE STATUS: Full code Attestations Medical Necessity Statement*: Patient requires hospitalization for sepsis, UTI, left pyelonephritis, shock, GI bleed Diagnoses Sepsis with acute hypoxic respiratory failure without septic shock, due to unspecified organism A41.9; R65.20; J96.01 Sepsis type: sepsis due to unspecified organism Sepsis acute organ dysfunction status: with acute organ dysfunction Severe sepsis acute organ dysfunction type: acute respiratory failure Acute respiratory failure type: with hypoxia Severe sepsis shock status: without septic shock Hypoxia R09.02 Normocytic anemia D64.9 Coronary artery disease involving yuhaaviatam coronary artery of yuhaaviatam heart, unspecified whether angina present I25.10 Coronary Disease-Associated Artery/Lesion type: yuhaaviatam artery [place] vs. transplanted heart: yuhaaviatam heart Associated angina: unspecified whether angina present Chronic obstructive pulmonary disease, unspecified COPD type J44.9 COPD type: unspecified COPD Tobacco use Z72.0 Depression, unspecified depression type F32.A Depression Type: unspecified Acute anemia D64.9 GI bleed K92.2 Shock R57.9 Pyelonephritis N12
--- NOTE | 2023-12-31 14:54 | ECG_ITS ---
[facility] Test Date: 2023-12-31 Pat Name: Silke Camp Department: Room: 251 Gender: Female [employer]: : 1960 Requested By: Brent Ortiz Order Number: [id number] Doron MD: Edgar Velasco M.D. Measurements Intervals [place] Rate: 80 P: 73 AR: 206 QRS: 85 QRSD: 88 T: 65 QT: 403 QTc: 465 Interpretive Statements SINUS RHYTHM NONSPECIFIC T-WAVE ABNORMALITY No previous ECG available for comparison Electronically Signed On 01-01-2024 16:31:47 MANAGER E COMMERCE by Edgar Velasco M.D. [id number]
--- NOTE | 2023-12-31 15:32 | PC.NURSE ---
report called to Katie in ICU, patient's daughter Yamilka notified of change in status and patient being moved to ICU 8 at this time.
[2023-12-31 16:24] LABS: Troponin(5th) Baseline 19 ng/L (0-10)
--- NOTE | 2023-12-31 16:42 | ECG_ITS ---
[facility] Test Date: 2023-12-31 Pat Name: Silke Camp Department: Room: [facility]08 Gender: Female Private Duty Nurse: : 1960 Requested By: Brent Ortiz Order Number: [id number] Doron MD: Edgar Velasco M.D. Measurements Intervals [place] Rate: 69 P: 70 [place]: 210 QRS: 76 QRSD: 79 T: 51 QT: 400 QTc: 429 Interpretive Statements SINUS RHYTHM WITH FIRST DEGREE AV BLOCK POSSIBLE RIGHT VENTRICULAR CONDUCTION DELAY [RSR (QR) IN V1/V2] NONSPECIFIC T-WAVE ABNORMALITY Compared to ECG 12/31/2023 15:37:58 First degree AV block now present T-wave abnormality still present Electronically Signed On 01-01-2024 16:33:26 SALES PERFORMANCE ANALYST by Edgar Velasco M.D. [id number]
[2023-12-31 18:50] LABS: Troponin 5 2HR 19.82 ng/L (0-10); Troponin 5 2HR Delta 0.82 ABS# (0-10)
--- NOTE | 2023-12-31 20:54 | ECG_ITS ---
[facility] Test Date: 2023-12-31 Pat Name: Silke Camp Department: Room: [facility]08 Gender: Female [employer]visor [employer]: : 1960 Requested By: Brent Ortiz Order Number: [id number] Doron MD: Edgar Velasco M.D. Measurements Intervals [place] Rate: 94 P: 68 [place]: 188 QRS: 57 QRSD: 103 T: 56 QT: 357 QTc: 448 Interpretive Statements SINUS RHYTHM NONSPECIFIC ST & T-WAVE ABNORMALITY Compared to ECG 12/31/2023 16:42:50 First degree AV block no longer present T-wave abnormality still present Electronically Signed On 01-01-2024 16:33:05 MARKETING SALES SUPERVISOR by Edgar Velasco M.D. [id number]
[2023-12-31 21:19] LABS: Hematocrit 25.7 % (36-47)
[2023-12-31 21:37] LABS: Troponin 5 6HR 33.61 ng/L (0-10)
[2023-12-31 21:47] LABS: Troponin 5 6HR Delta 14.61 ng/L (0-12)
[2023-12-31] MEDS: zolpidem 5 mg Tablet 10 MG PO (23:34)
[2024-01-01] VITALS (245 sets, daily range): BP systolic 88–141; BP diastolic 54–85; PULSE 61–95; RESP 14–26; TEMP 36.4–37.1; O2SAT 87–100
[2024-01-01] MEDS: sucralfate 1 gm/10 mL Oral Liq UDC PO ×4 (01:55→19:51)
[2024-01-01 02:17] LABS: Basophils # 0.1 10^3/uL (0.0-0.1); Basophils % 0.4 %; Eosinophils # 0.1 10^3/uL (0.0-0.8); Eosinophils % 0.6 %; Hematocrit 26.1 % (36-47); Lymphocytes # 1.2 10^3/uL (0.8-4.8); Lymphocytes % 9.2 %; Mean Corpuscular HGB Conc 30.3 g/dL (30-55); Mean Corpuscular Hemoglobin 26.3 pg (27-33); Mean Platelet Volume 9.8 fL (7.4-10.4); Monocytes # 1.1 10^3/uL (0.2-0.9); Monocytes % 8.6 %; Neutrophils # 10.17 10^3/uL (1.8-7.7); Neutrophils % 80.8 %; Nucleated Red Blood Cells % 0 %; Platelet Count 229 10^3/cmm (157-399); Red Cell Distribution Width 15.6 % (12.1-15.1); White Blood Count 12.59 10^3/uL (3.29-11.43)
[2024-01-01 02:30] LABS: INR 1.03 (0.8-1.2)
[2024-01-01 02:40] LABS: Alanine Aminotransferase 24 U/L (0-33); Albumin Level 3.1 g/dL (3.5-5.2); Alkaline Phosphatase 130 U/L (35-105); Anion Gap 13.4 (5-19); Aspartate Amino Transferase 33 U/L (0-32); Blood Urea Nitrogen 13 mg/dL (8-23); C Reactive Protein 124.6 mg/L (0.0-4.9); Calcium 8.2 mg/dL (8.5-10.5); Carbon Dioxide 21 mmol/L (22-29); Chloride 108 mmol/L (98-107); Glucose 88 mg/dL (65-115); Osmolality Calculated 286 mOsm/kg (285-295); Phosphorus 2.7 mg/dL (2.5-4.5); Potassium 4.4 mmol/L (3.5-5.1); Sodium 138 mmol/L (136-145); Total Bilirubin 0.2 mg/dL (0.15-1.2); Total Protein 6.1 g/dL (6.6-8.7)
[2024-01-01 02:41] LABS: Lactate (Lactic Acid level) 0.7 mmol/L (0.5-2.2)
[2024-01-01 02:56] LABS: Procalcitonin 9.03 ng/mL (0-0.5)
[2024-01-01] MEDS: gabapentin 300 mg Capsule 600 MG PO ×3 (03:26→19:51)
[2024-01-01] MEDS: midodrine 5 mg TABLET 10 MG PO ×3 (03:26→18:38)
[2024-01-01] MEDS: acetaminophen 325 mg Tablet 650 MG PO ×3 (03:48→21:44)
[2024-01-01] MEDS: meropenem 1,000 MG in sodium chloride 0.9% (plus) 50 ML 100 MG IV ×3 (04:51→21:12)
[2024-01-01] MEDS: pantoprazole 40 mg SDV IVP ×2 (08:35→21:12)
[2024-01-01] MEDS: atorvastatin 40 mg Tablet 80 MG PO (08:36)
[2024-01-01] MEDS: aspirin 81 mg Chew Tablet PO (08:36)
[2024-01-01] MEDS: citalopram 20 mg Tablet 40 MG PO (08:36)
[2024-01-01] MEDS: fluticasone nasal spray 16gm Btl 1 SPRAY INTRANASAL (08:38)
[2024-01-01 08:47] LABS: Hematocrit 26.5 % (36-47)
[2024-01-01] MEDS: ipratropium-albuterol 3 mL Neb INHALATION (08:50)
[2024-01-01] MEDS: budesonide 0.5 mg/2 mL Neb INHALATION ×2 (08:50→19:58)
[2024-01-01] MEDS: prasugrel 10 MG Tablet PO (09:12)
--- NOTE | 2024-01-01 13:28 | P.CONIM_ITS ---
Providers/Reason For Consult 2 Consulting Physician/Specialty*: Dr. Rudy Molina, DO/General surgery Reason for Consult*: Iron deficiency anemia Attending Physician: Brent Ortiz MD Primary Care Provider: SANDOR Barber History of Present Illness History of Present Illness Silke Camp is a 63 year old female who presented to the hospital with left inguinal pain. She is found to have pyelonephritis. She has been treated for this and reports that her left inguinal pain has greatly resolved. Palpation makes the pain worse. Nothing seems to make the pain better. The pain does radiate to her left flank. She was having nausea and vomiting but denies any diarrhea, hematemesis, hematochezia and/or melena. She is found to have iron deficiency anemia by the hospitalist. General surgery was consulted for possible endoscopy. Review of Systems 2 General: Reports: 10 or more systems reviewed and unremarkable except in HPI and below Medications/Allergies Home Medications Medication Instructions Recorded Confirmed Last Taken Type melatonin 5 mg capsule 5 mg PO DAILY PRN sleep 30 days 11/25/21 12/31/23 Unknown Rx #30 caps fluticasone 100 mcg-salmeterol 50 1 inh inhalation BID #60 ea 10/19/22 12/31/23 12/30/23 17:30 Rx mcg/dose blistr powdr for inhalation (Advair Diskus) pantoprazole 20 mg tablet,delayed 20 mg PO DAILY 90 days #90 tabs 03/16/23 12/31/23 12/30/23 11:00 Rx release ipratropium 0.5 mg-albuterol 3 mg 3 ml inhalation QID PRN wheezing 04/19/23 12/31/23 Unknown Rx (2.5 mg base)/3 mL nebulization #90 mL soln nebulizer machine #1 ea 04/19/23 12/31/23 Unknown Rx gabapentin 600 mg tablet 600 mg PO Q8H 90 days #270 tabs 08/29/23 12/31/23 12/30/23 11:00 Rx aspirin 81 mg chewable tablet 81 mg PO DAILY 90 days #90 tabs 09/04/23 12/31/23 12/30/23 11:00 Rx atorvastatin 80 mg tablet 80 mg PO DAILY 90 days #90 tabs 09/04/23 12/31/23 12/30/23 11:00 Rx losartan 50 mg tablet 50 mg PO DAILY 10/17/23 02/12/24 02/11/24 11:00 History metoprolol succinate 25 mg 12.5 mg (1/2 x 25 mg) PO DAILY 90 09/04/23 12/31/23 12/30/23 11:00 Rx tablet,extended release 24 hr days #90 tabs nitroglycerin 0.4 mg sublingual 0.4 mg sublingual Q5M PRN chest 09/04/23 12/31/23 Unknown Rx tablet pain 90 days #90 tabs prasugrel 10 mg tablet (Effient) 10 mg PO DAILY 90 days #90 tabs 09/04/23 12/31/23 12/30/23 11:00 Rx albuterol sulfate 90 mcg/actuation 2 puff inhalation Q6H PRN 11/21/23 12/31/23 Unknown Rx aerosol inhaler (ProAir HFA) shortness of breath or wheezing #8.5 grams citalopram 40 mg tablet 40 mg PO DAILY 90 days #90 tabs 11/21/23 12/31/23 12/30/23 11:00 Rx clonazepam 1 mg tablet 1 mg PO Q8H PRN anxiety 30 days 11/21/23 12/31/23 Unknown Rx #90 tabs fluticasone propionate 50 1 spray intranasal DAILY #16 grams 11/21/23 12/31/23 Unknown Rx mcg/actuation nasal spray,suspension (Flonase Allergy Relief) zolpidem 10 mg tablet 10 mg PO .nightly 30 days #30 tabs 11/21/23 12/31/23 Unknown Rx Allergies Allergy/AdvReac Type Severity Reaction Status Date / Time No Known Allergies Allergy Verified 12/31/23 01:59 Current Medications Generic Name Dose Route Start Last Admin Trade Name Freq PRN Reason Stop Dose Admin Acetaminophen 650 mg 12/31/23 01:59 01/01/24 21:44 Acetaminophen 325 Mg Tablet PO 650 mg Q6H PRN Administration Mild/Mod Pain Or Temp >/= 101 Albuterol/Ipratropium 3 ml 12/31/23 03:09 01/02/24 08:34 Ipratropium-Albuterol 3 Ml Neb INHALATION 3 ml Q4H PRN Administration SHORTNESS OF BREATH Aspirin 81 mg 12/31/23 09:00 01/02/24 08:05 Aspirin 81 Mg Chew Tablet PO Not Given DAILY MOE Atorvastatin Calcium 80 mg 12/31/23 09:00 01/02/24 08:03 Atorvastatin 40 Mg Tablet PO 80 mg DAILY MOE Administration Budesonide 0.5 mg 12/31/23 08:00 01/02/24 08:34 Budesonide 0.5 Mg/2 Ml Neb INHALATION 0.5 mg BID.RESPIRATORY MOE Administration Citalopram Hydrobromide 40 mg 12/31/23 09:00 01/02/24 08:02 Citalopram 20 Mg Tablet PO 40 mg DAILY MOE Administration Fluticasone Propionate 1 spray 12/31/23 09:00 01/02/24 08:05 Fluticasone Nasal [place] 16gm Btl INTRANASAL 1 spray DAILY MOE Administration Gabapentin 600 mg 12/31/23 04:15 01/02/24 11:49 Gabapentin 300 Mg Capsule PO 600 mg Q8H MOE Administration Meropenem 1,000 mg/ Sodium 50 mls @ 100 mls/hr 12/31/23 11:15 01/02/24 04:23 Chloride IV 100 mls/hr Q8H MOE Administration Protocol Sodium Chloride 1,000 mls @ 30 mls/hr 01/02/24 12:45 01/02/24 12:55 Sodium Chloride 0.9% IV 01/03/24 12:44 30 mls/hr .Q24H MOE Administration Midodrine 5 mg 01/02/24 08:10 01/02/24 08:28 Midodrine 5 Mg Tablet PO 5 mg Q8H MOE Administration Ondansetron HCl 4 mg 12/31/23 01:59 12/31/23 02:39 Ondansetron 2 Mg/Ml Sdv 2 Ml IVP 4 mg Q8H PRN Administration vomiting, or N/V if npo Pantoprazole Sodium 40 mg 12/31/23 09:00 01/02/24 08:03 Pantoprazole 40 Mg Sdv IVP 40 mg Q12H MOE Administration Prasugrel 10 mg 12/31/23 09:00 01/02/24 08:02 Prasugrel 10 Mg Tablet PO 10 mg DAILY MOE Administration Sucralfate 1 gm 12/31/23 08:15 01/02/24 08:04 Sucralfate 1 Gm/10 Ml Oral Liq Udc PO 1 gm Q6H MOE Administration Zolpidem Tartrate 10 mg 12/31/23 21:00 01/02/24 00:59 Zolpidem 5 Mg Tablet PO 10 mg BEDTIME MOE Administration PFSH Acute 2 PFSH: Medical History Needs smoking cessation education STEMI (ST elevation myocardial infarction) Greater trochanteric bursitis of right hip Greater trochanteric bursitis of left hip Hip osteoarthritis PNA (pneumonia) COPD exacerbation Diffuse wheezing Overactive bladder Stress incontinence Sciatica Dental infection Sinusitis Encounter for smoking cessation counseling Allergic rhinitis Lumbar radiculopathy Colon polyp Patient reports several colon polyps removed at [place], and states she has not had followup. History of ST elevation myocardial infarction (STEMI) STEMI with Stent Placement 08/31/2023 Treated at [facility] syndrome Vitamin D deficiency Fatigue Medication management UTI (urinary tract infection), bacterial Dysuria Pelvic pain Nausea Hypoactive bowel sounds Lower respiratory infection Shortness of breath Exposure to confirmed case of COVID-19 Chronic hip pain Insomnia GERD (gastroesophageal reflux disease) Conversion disorder Anxiety Depression COPD (chronic obstructive pulmonary disease) Surgical History History of heart artery stent Family History Father No problems noted. Denies family history of Anemia Social History Smoking and tobacco/nicotine status: current every day tobacco/nicotine user Alcohol intake: never Substance/Drug Use: never Vitals/I&O/Wt Last Vital Signs Temp 97.0 F L 01/02/24 12:45 Pulse 86 01/02/24 12:45 Resp 16 01/02/24 12:45 BP 129/78 01/02/24 12:45 Pulse Ox 94 01/02/24 12:45 O2 Del Method Nasal Cannula 01/02/24 12:45 O2 Flow Rate 1 01/02/24 12:45 01/01/24 01/02/24 01/02/24 22:59 06:59 14:59 Intake Total 50 / 218 0 / 218 Output Total 1999 / 2699 Balance -1950 / -2481 0 / -2481 Weight last 48 hrs Weight 118 lb Weight 118 lb Weight 123 lb Weight 123 lb Physical Exam 2 Narrative: General : Patient is well developed , no acute distress, oriented x3 Head : Normal cephalic, a-traumatic. Ears : Pinnae and external canal are normal. Hearing is normal. Eyes : PERRLA, Sclera and injection are normal. No conjunctival discharge. Nose : Mucous membranes are without erythema. Throat : buccal mucosa is normal, gums are without significant recession or hypertrophy. Lungs : Equal chest rise bilaterally, no use of accessory muscles, trachea is midline. Cor : Rate and rhythm are normal. Abdomen : Soft, ND, NT, no g/r/m Extremities : No edema, no cyanosis or clubbing, dorsalis pedis pulses are present bilaterally, non-tender to palpation of calves. Upper extremities are normal bilaterally. Back : non-tender to palpation, no CVA tenderness. Neuro : CN II - XII intact, Upper and lower extremities have equal and full strength Data 01/02/24 04:27 01/02/24 04:27 Micro: Microbiology 12/31/23 09:04 Urine Culture - Final Urine,Clean Catch 01/01/24 17:11 Occult Blood (FIT) - Final Stool - Stool Aspirate A&P Assessment and plan (1) GI bleed: (2) Iron deficiency anemia: Plan Bowel prep Tomorrow for EGD and colonoscopy The risks and benefits of the procedure, including bleeding, infection, intestinal perforation requiring surgery, missed lesion were explained to the patient. The patient is understanding of the risks and wishes to proceed. Coding Level of Care Code 18521 Diagnoses GI bleed K92.2 Iron deficiency anemia D50.9
[2024-01-01 13:49] LABS: Methicillin-Resist S.aureu PCR NOT DETECTED (NOT DETECTED)
--- NOTE | 2024-01-01 14:27 | PC.NURSE ---
Dr. Molina spoke with patient about procedure tomorrow, gave verbal order for magnesium citrate and ducolax.
[2024-01-01] MEDS: bisacodyl 5 mg Tablet 20 MG PO (14:44)
[2024-01-01] MEDS: magnesium citrate Btl 296 mL PO ×2 (14:45→18:52)
--- NOTE | 2024-01-01 17:01 | P.PN_ITS ---
Subjective 2 Subjective: Patient was seen this morning, she denies any bloody or black stools, no lightheadedness, dizziness, no nausea no vomiting Vitals/I&O/Wt Last Vital Signs Temp 98.6 F 01/01/24 16:00 Pulse 74 01/01/24 16:12 Resp 19 H 01/01/24 16:00 BP 122/72 01/01/24 16:00 Pulse Ox 98 01/01/24 16:00 O2 Del Method Nasal Cannula 01/01/24 08:50 O2 Flow Rate 2 01/01/24 08:50 01/01/24 01/01/24 01/01/24 06:59 14:59 22:59 Intake Total 100 / 1528 168 / 168 Output Total 400 / 1050 700 / 700 200 / 900 Balance -300 / 478 -532 / -532 -200 / -732 Weight last 48 hrs Weight 55.792 kg Weight 55.792 kg Weight 66.678 kg Weight 66.678 kg Physical Exam 2 Const: COMMON NORMALS: no acute distress and patient oriented x3 Resp: COMMON NORMALS: normal respiratory effort, No retractions, No use of accessory muscles and clear to auscultation bilaterally AUSCULTATION: clear to auscultation bilaterally Cardio: COMMON NORMALS: regular rate, regular rhythm, S1 normal heart sound present and S2 normal heart sound present RATE: regular rate RHYTHM: r egular rhythm HEART SOUNDS: S1 normal heart sound present and S2 normal heart sound present GI: COMMON NORMALS: Normal to inspection, nondistended, normoactive bowel sounds present and non-tender Extremity: COMMON NORMALS: no pedal edema Neuro: COMMON NORMALS: patient oriented x3 Psych: COMMON NORMALS: mental status grossly normal Data 01/01/24 13:20 01/01/24 02:04 Micro: Microbiology 12/31/23 09:04 Urine Culture - Preliminary Urine,Clean Catch 12/31/23 04:19 Blood Culture - Preliminary Blood NEGATIVE TO DATE 12/31/23 04:15 Blood Culture - Preliminary Blood NEGATIVE TO DATE A&P Assessment and plan (1) Sepsis: SIRS: Criteria met Source: Acute complicated urinary tract infection complicated by left-sided pyelonephritis Endorgan damage: Acute hypoxia, lactic acidosis > 6 Blood culture Urinalysis with urine culture Continue meropenem start on midodrine 10 mg 3 times daily Telemetry monitoring Strict I's and O's Supportive care Qualifiers: Sepsis type: sepsis due to unspecified organism Sepsis acute organ dysfunction status: with acute organ dysfunction Severe sepsis acute organ dysfunction type: acute respiratory failure Acute respiratory failure type: w ith hypoxia Severe sepsis shock status: without septic shock Qualified Code(s): A41.9 - Sepsis, unspecified organism; R65.20 - Severe sepsis without septic shock; J96.01 - Acute respiratory failure with hypoxia (2) Hypoxia: Acute hypoxia in the setting of sepsis; history of COPD, heart disease Current active smoker (3) Normocytic anemia: Normocytic anemia Broad differential History of STEMI, requiring transfer to tertiary level center, for stent placement to LAD (4) Coronary artery disease: Patient reports myocardial infarction treated at [facility] in August Her post hospital follow-up visit with Dr. Ortiz reviewed Unable to locate the records from this hospitalization in the EMR Plan to continue chronic cardiac medications after home list is updated Qualifiers: Coronary Disease-Associated Artery/Lesion type: [place] artery [place] vs. transplanted heart: [place] heart Associated angina: unspecified whether angina present Qualified Code(s): I25.10 - Atherosclerotic heart disease of [place] coronary artery without angina pectoris (5) COPD (chronic obstructive pulmonary disease): Patient with cough Chest x-ray ordered Supplemental oxygen as needed Breathing treatments as needed Qualifiers: COPD type: unspecified COPD Qualified Code(s): J44.9 - Chronic obstructive pulmonary disease, unspecified (6) Tobacco use: Reports she is cutting back on cigarette use Would benefit from cessation (7) Depression: Continue home meds, pending home medication list update Qualifiers: Depression Type: unspecified Qualified Code(s): F32.A - Depression, unspecified (8) Acute anemia: - Acute anemia -Multifactorial, from GI bleed and or septic shock, sepsis (9) GI bleed: - Concerns for slow GI bleed -She denies any bloody or black stools, no active hemorrhage -She does have evidence of iron deficiency anemia -Highly suspicious for slow GI bleed -Protonix 40 IV twice daily, Carafate 1 g every 6 hours -Monitor hemodynamics closely -She is on aspirin and Effient for recent history of LAD stent has received 4 doses this morning -Will consider to hold versus continue based on clinical progress, as this is a difficult decision on the one hand she has a high risk of adverse cardiovascular event stent closure if aspirin Effient worse to be stopped but on the other hand she has a high risk of worsening of her GI bleeding, anemia, hypotension if they are continued -I had a detailed discussion with patient at bedside about this difficult decision, shared decision making, she is agreeable to hold aspirin and Effient if necessary -Spoke to general surgery, Dr. Molina, consider EGD and colonoscopy tomorrow (10) Shock: - Multifactorial, resolving -Septic shock from pyelonephritis as above elevated lactic acid -Component of acute anemia, possible hemorrhagic shock related to GI bleed -Some component related to hypovolemia -Will receive 500 mL bolus on MedSurg -Received a unit of blood - on midodrine 10 mg 3 times daily -Monitor blood pressures closely (11) Pyelonephritis: Plan NSTEMI, serial EKGs, serial troponins, telemetry monitoring DVT prophylaxis: Heparin CODE STATUS: Full code Plan for today continue meropenem, monitor hemoglobin, plan for EGD colonoscopy tomorrow Attestations 2 Medical Necessity Statement*: Patient requires hospitalization for shock, UTI, pyelonephritis, GI bleed, sepsis Diagnoses Sepsis with acute hypoxic respiratory failure without septic shock, due to unspecified organism A41.9; R65.20; J96.01 Sepsis type: sepsis due to unspecified organism Sepsis acute organ dysfunction status: with acute organ dysfunction Severe sepsis acute organ dysfunction type: acute respiratory failure Acute respiratory failure type: with hypoxia Severe sepsis shock status: without septic shock Hypoxia R09.02 Normocytic anemia D64.9 Coronary artery disease involving [place] coronary artery of [place] heart, unspecified whether angina present I25.10 Coronary Disease-Associated Artery/Lesion type: [place] artery [place] vs. transplanted heart: [place] heart Associated angina: unspecified whether angina present Chronic obstructive pulmonary disease, unspecified COPD type J44.9 COPD type: unspecified COPD Tobacco use Z72.0 Depression, unspecified depression type F32.A Depression Type: unspecified Acute anemia D64.9 GI bleed K92.2 Shock R57.9 Pyelonephritis N12
[2024-01-01 20:58] LABS: Hematocrit 32.8 % (36-47)
[2024-01-02] VITALS (78 sets, daily range): BP systolic 88–136; BP diastolic 58–85; PULSE 63–113; RESP 13–29; TEMP 36.1–36.7; O2SAT 88–100
[2024-01-02] MEDS: zolpidem 5 mg Tablet 10 MG PO ×2 (00:59→20:44)
[2024-01-02 01:06] LABS: Hematocrit 30.3 % (36-47)
[2024-01-02] MEDS: midodrine 5 mg TABLET 10 MG PO (02:36)
[2024-01-02] MEDS: sucralfate 1 gm/10 mL Oral Liq UDC PO ×3 (02:36→19:55)
[2024-01-02] MEDS: gabapentin 300 mg Capsule 600 MG PO ×3 (04:22→19:55)
[2024-01-02] MEDS: meropenem 1,000 MG in sodium chloride 0.9% (plus) 50 ML 100 MG IV ×3 (04:23→20:45)
[2024-01-02 04:54] LABS: Basophils % 0.4 %; Eosinophils # 0.2 10^3/uL (0.0-0.8); Hematocrit 29.6 % (36-47); Lymphocytes # 1.1 10^3/uL (0.8-4.8); Lymphocytes % 12.9 %; Mean Corpuscular HGB Conc 29.7 g/dL (30-55); Mean Corpuscular Hemoglobin 26.3 pg (27-33); Mean Corpuscular Volume 88.4 fl (85-98); Mean Platelet Volume 9.9 fL (7.4-10.4); Monocytes % 12.4 %; Neutrophils % 72.1 %; Nucleated Red Blood Cells % 0 %; Platelet Count 262 10^3/cmm (157-399); Red Blood Count 3.35 10^6/uL (3.85-5.65); Red Cell Distribution Width 15.9 % (12.1-15.1); White Blood Count 8.32 10^3/uL (3.29-11.43)
[2024-01-02 05:02] LABS: INR 0.96 (0.8-1.2)
[2024-01-02 05:12] LABS: Lactate (Lactic Acid level) 0.7 mmol/L (0.5-2.2)
[2024-01-02 05:22] LABS: Alanine Aminotransferase 29 U/L (0-33); Albumin Level 3.6 g/dL (3.5-5.2); Alkaline Phosphatase 157 U/L (35-105); Anion Gap 16.2 (5-19); Aspartate Amino Transferase 44 U/L (0-32); Blood Urea Nitrogen 8 mg/dL (8-23); C Reactive Protein 67.4 mg/L (0.0-4.9); Calcium 8.5 mg/dL (8.5-10.5); Carbon Dioxide 20 mmol/L (22-29); Chloride 107 mmol/L (98-107); Globulin 2.6 g/dL (1.3-4.6); Glomerular Filtration Rate 100.3 mL/min (90-130); Glucose 81 mg/dL (65-115); Magnesium 2.3 mg/dL (1.7-2.3); Osmolality Calculated 285 mOsm/kg (285-295); Phosphorus 2.3 mg/dL (2.5-4.5); Potassium 4.2 mmol/L (3.5-5.1); Sodium 139 mmol/L (136-145); Total Bilirubin 0.4 mg/dL (0.15-1.2); Total Protein 6.2 g/dL (6.6-8.7)
--- NOTE | 2024-01-02 05:56 | PC.NURSE ---
No acute changes over night. Patient ambulated to bedside commode multiple times with loose bowel movements due to bowel prep.
[2024-01-02] MEDS: prasugrel 10 MG Tablet PO (08:02)
[2024-01-02] MEDS: citalopram 20 mg Tablet 40 MG PO (08:02)
[2024-01-02] MEDS: atorvastatin 40 mg Tablet 80 MG PO (08:03)
[2024-01-02] MEDS: pantoprazole 40 mg SDV IVP ×2 (08:03→20:44)
[2024-01-02] MEDS: fluticasone nasal spray 16gm Btl 1 SPRAY INTRANASAL (08:05)
[2024-01-02] MEDS: midodrine 5 mg TABLET PO ×3 (08:28→23:27)
[2024-01-02] MEDS: budesonide 0.5 mg/2 mL Neb INHALATION ×2 (08:34→20:47)
[2024-01-02] MEDS: ipratropium-albuterol 3 mL Neb INHALATION ×2 (08:34→20:47)
--- NOTE | 2024-01-02 12:32 | P.PN_ITS ---
Subjective 2 Subjective: Patient was seen this morning, she denies any fevers, no chills, no nausea, vomiting Vitals/I&O/Wt Last Vital Signs Temp 98.1 F 01/02/24 00:55 Pulse 88 01/02/24 08:55 Resp 16 01/02/24 08:35 BP 117/68 01/02/24 08:00 Pulse Ox 92 01/02/24 08:35 O2 Del Method Oxymask 01/02/24 08:35 O2 Flow Rate 1 01/02/24 08:35 01/01/24 01/02/24 01/02/24 22:59 06:59 14:59 Intake Total 50 / 218 0 / 218 Output Total 1999 Balance -1950 / -2481 0 / -248 Weight last 48 hrs Weight 53.524 kg Weight 53.524 kg Weight 55.792 kg Weight 55.792 kg Physical Exam 2 Const: COMMON NORMALS: no acute distress and patient oriented x3 Resp: COMMON NORMALS: normal respiratory effort, No retractions, No use of accessory muscles and clear to auscultation bilaterally AUSCULTATION: clear to auscultation bilaterally Cardio: COMMON NORMALS: regular rate, regular rhythm, S1 normal heart sound present and S2 normal heart sound present RATE: regular rate RHYTHM: r egular rhythm HEART SOUNDS: S1 normal heart sound present and S2 normal heart sound present GI: COMMON NORMALS: Normal to inspection, nondistended, normoactive bowel sounds present and non-tender Extremity: COMMON NORMALS: no pedal edema Neuro: COMMON NORMALS: patient oriented x3 Psych: COMMON NORMALS: mental status grossly normal Data 01/02/24 04:27 01/02/24 04:27 Micro: Microbiology 12/31/23 09:04 Urine Culture - Final Urine,Clean Catch 01/01/24 17:11 Occult Blood (FIT) - Final Stool - Stool Aspirate A&P Assessment and plan (1) Sepsis: SIRS: Criteria met, resolving Source: Acute complicated urinary tract infection complicated by left-sided pyelonephritis Endorgan damage: Acute hypoxia, lactic acidosis > 6 Blood culture Urinalysis with urine culture Continue meropenem Follow urine cultures Follow blood cultures Stop midodrine Telemetry monitoring Strict I's and O's Supportive care Qualifiers: Sepsis type: sepsis due to unspecified organism Sepsis acute organ dysfunction status: with acute organ dysfunction Severe sepsis acute organ dysfunction type: acute respiratory failure Acute respiratory failure type: w ith hypoxia Severe sepsis shock status: without septic shock Qualified Code(s): A41.9 - Sepsis, unspecified organism; R65.20 - Severe sepsis without septic shock; J96.01 - Acute respiratory failure with hypoxia (2) Hypoxia: Acute hypoxia in the setting of sepsis; history of COPD, heart disease Current active smoker (3) Normocytic anemia: Normocytic anemia Broad differential History of STEMI, requiring transfer to tertiary level center, for stent placement to LAD (4) Coronary artery disease: Patient reports myocardial infarction treated at [facility] in August Her post hospital follow-up visit with Dr. Ortiz reviewed Unable to locate the records from this hospitalization in the EMR Plan to continue chronic cardiac medications after home list is updated Qualifiers: Coronary Disease-Associated Artery/Lesion type: [place] artery [place] vs. transplanted heart: [place] heart Associated angina: unspecified whether angina present Qualified Code(s): I25.10 - Atherosclerotic heart disease of [place] coronary artery without angina pectoris (5) COPD (chronic obstructive pulmonary disease): Patient with cough Chest x-ray ordered Supplemental oxygen as needed Breathing treatments as needed Qualifiers: COPD type: unspecified COPD Qualified Code(s): J44.9 - Chronic obstructive pulmonary disease, unspecified (6) Tobacco use: Reports she is cutting back on cigarette use Would benefit from cessation (7) Depression: Continue home meds, pending home medication list update Qualifiers: Depression Type: unspecified Qualified Code(s): F32.A - Depression, unspecified (8) Acute anemia: - Acute anemia -Multifactorial, from GI bleed and or septic shock, sepsis (9) GI bleed: - Concerns for slow GI bleed -She denies any bloody or black stools, no active hemorrhage -She does have evidence of iron deficiency anemia -Highly suspicious for slow GI bleed -Protonix 40 IV twice daily, Carafate 1 g every 6 hours -Monitor hemodynamics closely -She is on aspirin and Effient for recent history of LAD stent has received 4 doses this morning -Will consider to hold versus continue based on clinical progress, as this is a difficult decision on the one hand she has a high risk of adverse cardiovascular event stent closure if aspirin Effient worse to be stopped but on the other hand she has a high risk of worsening of her GI bleeding, anemia, hypotension if they are continued -I had a detailed discussion with patient at bedside about this difficult decision, shared decision making, she is agreeable to hold aspirin and Effient if necessary -Spoke to general surgery, Dr. Molina, consider EGD and colonoscopy today (10) Shock: - Multifactorial, resolving -Septic shock from pyelonephritis as above elevated lactic acid -Component of acute anemia, possible hemorrhagic shock related to GI bleed -Some component related to hypovolemia -Will receive 500 mL bolus on MedSurg -Received a unit of blood - on midodrine 10 mg 3 times daily -Monitor blood pressures closely (11) Pyelonephritis: Plan NSTEMI, serial EKGs, serial troponins, telemetry monitoring DVT prophylaxis: Heparin CODE STATUS: Full code Plan for today continue meropenem, monitor hemoglobin, EGD colonoscopy tomorrow, if clinically stable will moved to general medical floors Attestations 2 Medical Necessity Statement*: Patient requires hospitalization for UTI, pyelonephritis requiring IV meropenem, GI bleed requiring EGD and colonoscopy, will likely move to [facility], discharge in 24 to 48 hours Diagnoses Sepsis with acute hypoxic respiratory failure without septic shock, due to unspecified organism A41.9; R65.20; J96.01 Sepsis type: sepsis due to unspecified organism Sepsis acute organ dysfunction status: with acute organ dysfunction Severe sepsis acute organ dysfunction type: acute respiratory failure Acute respiratory failure type: with hypoxia Severe sepsis shock status: without septic shock Hypoxia R09.02 Normocytic anemia D64.9 Coronary artery disease involving [place] coronary artery of [place] heart, unspecified whether angina present I25.10 Coronary Disease-Associated Artery/Lesion type: [place] artery [place] vs. transplanted heart: [place] heart Associated angina: unspecified whether angina present Chronic obstructive pulmonary disease, unspecified COPD type J44.9 COPD type: unspecified COPD Tobacco use Z72.0 Depression, unspecified depression type F32.A Depression Type: unspecified Acute anemia D64.9 GI bleed K92.2 Shock R57.9 Pyelonephritis N12
[2024-01-02] MEDS: sodium chloride 0.9% 1,000 ML 30 ML IV (12:55)
--- NOTE | 2024-01-02 13:31 | P.PN_ITS ---
Vitals/I&O/Wt Last Vital Signs Temp 97.0 F L 01/02/24 12:45 Pulse 86 01/02/24 12:45 Resp 16 01/02/24 12:45 BP 129/78 01/02/24 12:45 Pulse Ox 94 01/02/24 12:45 O2 Del Method Nasal Cannula 01/02/24 12:45 O2 Flow Rate 1 01/02/24 12:45 01/01/24 01/02/24 01/02/24 22:59 06:59 14:59 Intake Total 50 / 218 0 218 Output Total 1999 Balance -1950 / -248 0 / -248 Weight last 48 hrs Weight 118 lb Weight 118 lb Weight 123 lb Weight 123 lb Data 01/02/24 04:27 01/02/24 04:27 Micro: Microbiology 12/31/23 09:04 Urine Culture - Final Urine,Clean Catch 01/01/24 17:11 Occult Blood (FIT) - Final Stool - Stool Aspirate A&P Assessment and plan (1) GI bleed: (2) Iron deficiency anemia: Plan EGD and colonoscopy The risks and benefits of the procedure, including bleeding, infection, intestinal perforation requiring surgery, missed lesion were explained to the patient. The patient is understanding of the risks and wishes to proceed. Attestations 2 Medical Necessity Statement*: Per primary Coding Level of Care Code Acute Code for Chg Fwd Diagnoses GI bleed K92.2 Iron deficiency anemia D50.9
--- NOTE | 2024-01-02 13:33 | P.ANESASSM_ITS ---
Pre-Anesthetic Assessment Height/Weight: Height 1.6 m Weight 53.524 kg Temp Pulse Resp BP Pulse Ox O2 Del Method O2 Flow Rate 97.0 F L 86 16 129/78 94 Nasal Cannula 1 01/02/24 12:45 01/02/24 12:45 01/02/24 12:45 01/02/24 12:45 01/02/24 12:45 01/02/24 12:45 01/02/24 12:45 Preop Diagnosis: gi bleed Operation Date: 01/02/24 13:30 Proposed Procedures p EGD(Not Applicable) - Rudy Molina DO s Colonoscopy(Not Applicable) - Rudy Molina DO Was Beta Paxton taken within 24 hours: Yes Was Clonidine taken within 24 hours: N/A Last intake: Intake Last Liquid Date 01/01/24 Last Liquid Time 23:00 Last Solid Date 12/30/23 Last Solid Time 11:00 Social Tobacco and No alcohol 1 pack(s) per day Exam alert, oriented x 3, clear to auscultation bilaterally and regular rate & rhythm Airway Submandibular: within normal limits Cervical ROM: within normal limits Mallampati: Class I History/ROS No significant history except as noted Pulmonary Chronic Obstructive Pulmonary Disease 1 L NC oxygen Nebulizer CV/HEM Coronary Artery Disease stent to LAD august. chronic anticoagulation septic shock, resolving Urinary Tract Infection pyelonephritis Hepatic None reported Musc/skel None reported Neuropsych Anxiety and Depression Anesthetic Plan ASA status: 4 Anesthesia: Anesthesia Evaluation and General Risk of > 500 ml blood loss (7ml/kg in children): Yes, adequate IV access and fluids planned Medications/Allergies Home Medications Medication Instructions Recorded Confirmed Last Taken Type melatonin 5 mg capsule 5 mg PO DAILY PRN sleep 30 days 11/25/21 12/31/23 Unknown Rx #30 caps fluticasone 100 mcg-salmeterol 50 1 inh inhalation BID #60 ea 10/19/22 12/31/23 12/30/23 17:30 Rx mcg/dose blistr powdr for inhalation (Advair Diskus) pantoprazole 20 mg tablet,delayed 20 mg PO DAILY 90 days #90 tabs 03/16/23 12/31/23 12/30/23 11:00 Rx release ipratropium 0.5 mg-albuterol 3 mg 3 ml inhalation QID PRN wheezing 04/19/23 12/31/23 Unknown Rx (2.5 mg base)/3 mL nebulization #90 mL soln nebulizer machine #1 ea 04/19/23 12/31/23 Unknown Rx gabapentin 600 mg tablet 600 mg PO Q8H 90 days #270 tabs 08/29/23 12/31/23 12/30/23 11:00 Rx aspirin 81 mg chewable tablet 81 mg PO DAILY 90 days #90 tabs 09/04/23 12/31/23 12/30/23 11:00 Rx atorvastatin 80 mg tablet 80 mg PO DAILY 90 days #90 tabs 09/04/23 12/31/23 12/30/23 11:00 Rx losartan 50 mg tablet 50 mg PO DAILY 09/04/23 12/31/23 12/30/23 11:00 History metoprolol succinate 25 mg 12.5 mg (1/2 x 25 mg) PO DAILY 90 09/04/23 12/31/23 12/30/23 11:00 Rx tablet,extended release 24 hr days #90 tabs nitroglycerin 0.4 mg sublingual 0.4 mg sublingual Q5M PRN chest 09/04/23 12/31/23 Unknown Rx tablet pain 90 days #90 tabs prasugrel 10 mg tablet (Effient) 10 mg PO DAILY 90 days #90 tabs 09/04/23 12/31/23 12/30/23 11:00 Rx albuterol sulfate 90 mcg/actuation 2 puff inhalation Q6H PRN 11/21/23 12/31/23 Unknown Rx aerosol inhaler (ProAir HFA) shortness of breath or wheezing #8.5 grams citalopram 40 mg tablet 40 mg PO DAILY 90 days #90 tabs 11/21/23 12/31/23 12/30/23 11:00 Rx clonazepam 1 mg tablet 1 mg PO Q8H PRN anxiety 30 days 11/21/23 12/31/23 Unknown Rx #90 tabs fluticasone propionate 50 1 spray intranasal DAILY #16 grams 11/21/23 12/31/23 Unknown Rx mcg/actuation nasal spray,suspension (Flonase Allergy Relief) zolpidem 10 mg tablet 10 mg PO .nightly 30 days #30 tabs 11/21/23 12/31/23 Unknown Rx Allergies Allergy/AdvReac Type Severity Reaction Status Date / Time No Known Allergies Allergy Verified 12/31/23 01:59 Current Medications Generic Name Dose Route Start Last Admin Trade Name Freq PRN Reason Stop Dose Admin Acetaminophen 650 mg 12/31/23 01:59 01/01/24 21:44 Acetaminophen 325 Mg Tablet PO 650 mg Q6H PRN Administration Mild/Mod Pain Or Temp >/= 101 Albuterol/Ipratropium 3 ml 12/31/23 03:09 01/02/24 08:34 Ipratropium-Albuterol 3 Ml Neb INHALATION 3 ml Q4H PRN Administration SHORTNESS OF BREATH Aspirin 81 mg 12/31/23 09:00 01/02/24 08:05 Aspirin 81 Mg Chew Tablet PO Not Given DAILY MOE Atorvastatin Calcium 80 mg 12/31/23 09:00 01/02/24 08:03 Atorvastatin 40 Mg Tablet PO 80 mg DAILY MOE Administration Budesonide 0.5 mg 12/31/23 08:00 01/02/24 08:34 Budesonide 0.5 Mg/2 Ml Neb INHALATION 0.5 mg BID.RESPIRATORY MOE Administration Citalopram Hydrobromide 40 mg 12/31/23 09:00 01/02/24 08:02 Citalopram 20 Mg Tablet PO 40 mg DAILY MOE Administration Fluticasone Propionate 1 spray 12/31/23 09:00 01/02/24 08:05 Fluticasone Nasal [place] 16gm Btl INTRANASAL 1 spray DAILY MOE Administration Gabapentin 600 mg 12/31/23 04:15 01/02/24 11:49 Gabapentin 300 Mg Capsule PO 600 mg Q8H MOE Administration Meropenem 1,000 mg/ Sodium 50 mls @ 100 mls/hr 12/31/23 11:15 01/02/24 04:23 Chloride IV 100 mls/hr Q8H MOE Administration Protocol Sodium Chloride 1,000 mls @ 30 mls/hr 01/02/24 12:45 01/02/24 12:55 Sodium Chloride 0.9% IV 01/03/24 12:44 30 mls/hr .Q24H MOE Administration Midodrine 5 mg 01/02/24 08:10 01/02/24 08:28 Midodrine 5 Mg Tablet PO 5 mg Q8H MOE Administration Ondansetron HCl 4 mg 12/31/23 01:59 12/31/23 02:39 Ondansetron 2 Mg/Ml Sdv 2 Ml IVP 4 mg Q8H PRN Administration vomiting, or N/V if npo Pantoprazole Sodium 40 mg 12/31/23 09:00 01/02/24 08:03 Pantoprazole 40 Mg Sdv IVP 40 mg Q12H MOE Administration Prasugrel 10 mg 12/31/23 09:00 01/02/24 08:02 Prasugrel 10 Mg Tablet PO 10 mg DAILY MOE Administration Sucralfate 1 gm 12/31/23 08:15 01/02/24 08:04 Sucralfate 1 Gm/10 Ml Oral Liq Udc PO 1 gm Q6H MOE Administration Zolpidem Tartrate 10 mg 12/31/23 21:00 01/02/24 00:59 Zolpidem 5 Mg Tablet PO 10 mg BEDTIME MOE Administration PFSH Anesthesia Medical History Needs smoking cessation education STEMI (ST elevation myocardial infarction) Greater trochanteric bursitis of right hip Greater trochanteric bursitis of left hip Hip osteoarthritis PNA (pneumonia) COPD exacerbation Diffuse wheezing Overactive bladder Stress incontinence Sciatica Dental infection Sinusitis Encounter for smoking cessation counseling Allergic rhinitis Lumbar radiculopathy Colon polyp Patient reports several colon polyps removed at [facility], and states she has not had followup. History of ST elevation myocardial infarction (STEMI) STEMI with Stent Placement 08/31/2023 Treated at [facility] syndrome Vitamin D deficiency Fatigue Medication management UTI (urinary tract infection), bacterial Dysuria Pelvic pain Nausea Hypoactive bowel sounds Lower respiratory infection Shortness of breath Exposure to confirmed case of COVID-19 Chronic hip pain Insomnia GERD (gastroesophageal reflux disease) Conversion disorder Anxiety Depression COPD (chronic obstructive pulmonary disease) Surgical History History of heart artery stent Family History Father No problems noted. Denies family history of Anemia Social History Smoking and tobacco/nicotine status: current every day tobacco/nicotine user Alcohol intake: never Substance/Drug Use: never Data Anesthesia 01/02/24 04:27 01/02/24 04:27 Short CBC 12/31/23 12/31/23 01/01/24 Range/Units 14:09 21:09 02:04 WBC 12.59 H (3.29-11.43) 10^3/uL Hgb 8.60 L 7.80 L 7.90 L (11.27-16.99) g/dL Hct 28.0 L 25.7 L 26.1 L (36-47) % MCV 87.0 (85-98) fl Plt Count 229 (157-399) 10^3/cmm Neut % (Auto) 80.8 % Neut # (Auto) 10.17 H (1.8-7.7) 10^3/uL 01/01/24 01/01/24 01/01/24 Range/Units 08:36 13:20 17:59 WBC (3.29-11.43) 10^3/uL Hgb 7.90 L 8.20 L 8.70 L (11.27-16.99) g/dL Hct 26.5 L 27.0 L 29.0 L (36-47) % MCV (85-98) fl Plt Count (157-399) 10^3/cmm Neut % (Auto) % Neut # (Auto) (1.8-7.7) 10^3/uL 01/01/24 01/02/24 01/02/24 Range/Units 20:52 00:54 04:27 WBC 8.32 (3.29-11.43) 10^3/uL Hgb 9.80 L 9.20 L 8.80 L (11.27-16.99) g/dL Hct 32.8 L 30.3 L 29.6 L (36-47) % MCV 88.4 (85-98) fl Plt Count 262 (157-399) 10^3/cmm Neut % (Auto) 72.1 % Neut # (Auto) 6.00 (1.8-7.7) 10^3/uL BMP 01/01/24 01/02/24 02:04 04:27 Sodium 138 139 Potassium 4.4 4.2 Chloride 108 H 107 Carbon Dioxide 21 L 20 L BUN 13 8 Creatinine 0.7 0.6 Glucose 88 81 Calcium 8.2 L 8.5 Cardiac Enzymes 02/12/24 02/12/24 02/12/24 Range/Units 15:23 18:15 21:09 Troponin T Baseline 19 H (0-10) ng/L Troponin T 120 Minute 19.82 H (0-10) ng/L Delta Troponin T 0.82 (0-10) ABS# Troponin T Hi Sens 6Hr 33.61 H (0-10) ng/L Troponin T Hi Sens 6Hr Delta 14.61 H* (0-12) ng/L Liver Function 01/01/24 01/02/24 Range/Units 02:04 04:27 Total Bilirubin 0.2 0.4 (0.15-1.2) mg/dL AST 33 H 44 H (0-32) U/L ALT 24 29 (0-33) U/L Alkaline Phosphatase 130 H 157 H (35-105) U/L Albumin 3.1 L 3.6 (3.5-5.2) g/dL Coags 01/01/24 01/02/24 02:04 04:27 PT 13.80 13.10 INR 1.03 0.96 C-Reactive Protein 124.6 H 67.4 H Microbiology 12/31/23 09:04 Urine Culture - Final Urine,Clean Catch 01/01/24 17:11 Occult Blood (FIT) - Final Stool - Stool Aspirate Cardiac Studies: 2 No Data to Display
--- NOTE | 2024-01-02 14:42 | PC.SOCIAL ---
Pg 2 IMM Updated pt on IMM. No questions voiced. Provided pt a copy. Initialed, dated, & timed a copy & placed in chart.
--- NOTE | 2024-01-02 14:52 | PC.NURSE ---
patient back from GI lab
--- NOTE | 2024-01-02 16:39 | ANE.PACU2 ---
Inpatient post-anesthesia follow up: Airway intact: Yes Vital signs: Temperature 97.0 F Pulse Rate 75 Respiratory Rate 16 Blood Pressure 107/58 Pulse Oximetry 93 Oxygen Delivery Me thod Nasal Cannula Oxygen Flow Rate 1 Fraction of Inspir ed Oxygen Hydration adequate: Yes Nausea and vomiting: No Pain level: 2 Mental status: Baseline
--- NOTE | 2024-01-02 20:24 | PC.NURSE ---
Report given to Erin GAO, Patient transferred to [address] [place] [address]
[2024-01-03] VITALS (7 sets, daily range): BP systolic 105–128; BP diastolic 63–82; PULSE 73–92; RESP 15–19; TEMP 36.6–37; O2SAT 90–95
[2024-01-03] MEDS: sucralfate 1 gm/10 mL Oral Liq UDC PO ×2 (02:11→08:59)
[2024-01-03] MEDS: CLONazepam 1 mg Tablet PO (04:04)
[2024-01-03] MEDS: meropenem 1,000 MG in sodium chloride 0.9% (plus) 50 ML 100 MG IV (04:04)
[2024-01-03] MEDS: gabapentin 300 mg Capsule 600 MG PO (04:05)
[2024-01-03 04:53] LABS: Basophils % 0.4 %; Eosinophils # 0.2 10^3/uL (0.0-0.8); Eosinophils % 2.6 %; Hematocrit 28.3 % (36-47); Lymphocytes # 1.4 10^3/uL (0.8-4.8); Lymphocytes % 18.3 %; Mean Corpuscular HGB Conc 29.7 g/dL (30-55); Mean Corpuscular Hemoglobin 25.6 pg (27-33); Mean Corpuscular Volume 86.3 fl (85-98); Mean Platelet Volume 9.2 fL (7.4-10.4); Monocytes # 0.9 10^3/uL (0.2-0.9); Monocytes % 11.6 %; Neutrophils # 5.19 10^3/uL (1.8-7.7); Neutrophils % 66.7 %; Nucleated Red Blood Cells % 0 %; Platelet Count 267 10^3/cmm (157-399); Red Blood Count 3.28 10^6/uL (3.85-5.65); Red Cell Distribution Width 15.9 % (12.1-15.1); White Blood Count 7.77 10^3/uL (3.29-11.43)
[2024-01-03 05:04] LABS: INR 0.94 (0.8-1.2)
[2024-01-03 05:17] LABS: Alanine Aminotransferase 27 U/L (0-33); Albumin Level 3.4 g/dL (3.5-5.2); Alkaline Phosphatase 145 U/L (35-105); Anion Gap 15.6 (5-19); Aspartate Amino Transferase 38 U/L (0-32); Blood Urea Nitrogen 8 mg/dL (8-23); C Reactive Protein 30.5 mg/L (0.0-4.9); Calcium 8.4 mg/dL (8.5-10.5); Carbon Dioxide 21 mmol/L (22-29); Chloride 107 mmol/L (98-107); Glomerular Filtration Rate 100.3 mL/min (90-130); Glucose 93 mg/dL (65-115); Magnesium 1.8 mg/dL (1.7-2.3); Osmolality Calculated 288 mOsm/kg (285-295); Phosphorus 1.5 mg/dL (2.5-4.5); Potassium 3.6 mmol/L (3.5-5.1); Sodium 140 mmol/L (136-145); Total Bilirubin 0.3 mg/dL (0.15-1.2); Total Protein 6.4 g/dL (6.6-8.7)
[2024-01-03 05:19] LABS: Lactate (Lactic Acid level) 2.1 mmol/L (0.5-2.2)
[2024-01-03] MEDS: budesonide 0.5 mg/2 mL Neb INHALATION (08:10)
[2024-01-03] MEDS: atorvastatin 40 mg Tablet 80 MG PO (08:59)
[2024-01-03] MEDS: aspirin 81 mg Chew Tablet PO (08:59)
[2024-01-03] MEDS: prasugrel 10 MG Tablet PO (08:59)
[2024-01-03] MEDS: midodrine 5 mg TABLET PO (08:59)
[2024-01-03] MEDS: fluticasone nasal spray 16gm Btl 1 SPRAY INTRANASAL (09:00)
[2024-01-03] MEDS: pantoprazole 40 mg SDV IVP (09:00)
[2024-01-03] MEDS: citalopram 20 mg Tablet 40 MG PO (09:00)
--- NOTE | 2024-01-03 10:34 | P.DS_ITS ---
Discharge Providers Date of Admission: 12/31/23 01:52 Date of Discharge: January 03, 2024 Attending Provider at Admission: Rico Stanley MD Attending Provider at Discharge: Brent Ortiz MD Primary Care Provider: SANDOR Barber Diagnoses at Discharge Discharge Diagnosis (1) GI bleed: Status: Acute (2) Iron deficiency anemia: Status: Acute Reason for Visit Reason for Visit: Sepsis / UTI Hospital Course Hospital Course Silke Camp is a 63 year old female with a past medical history significant for coronary artery disease with history of MN, GERD, conversion disorder, anxiety, depression, tobacco use disorder, and COPD who initially presented to an outside hospital at [facility] with left inguinal and left low back pain x 2 to 3 days. She endorses associated symptoms of rigors, myalgias, fatigue, nausea and poor oral intake. She describes the pain as shooting down into her left inguinal area. She describes it as severe at times. She received Toradol at the outside hospital which she thinks may have upset her stomach. Denies other alleviating or aggravating factors. She denies any recent UTIs. Denies any recent antibiotic use. At the outside hospital, patient was found to have sepsis. Her heart rate was persistently above 100. Her blood pressure was soft with readings in the 90s-100s/50s-60s. Labs revealed a CBC of 15.3>8.6/28.4<397, BMP 137/4. 5/100/16/16/0.82. D-dimer 4.6. Troponin within normal limits. Lactic acid 6.9. Urinalysis with 1+ leukocyte Estrace, nitrite positive, 2+ protein, 11-25 WBCs, 3+ bacteria. RSV, rapid flu, and COVID-19 were negative. Chest x-ray showed interstitial prominence which was read by radiologist as could be seen with volume overload, viral illness, or bronchiolitis; no focal consolidations. CT abdomen/pelvis without contrast showed no evidence of obstructive uropathy or urolithiasis. There is mild asymmetric left perinephric stranding which is nonspecific but could be secondary to infection/pyelonephritis. CTA of the chest showed no pulmonary embolism but did reveal advanced emphysematous changes as well as a pulmonary nodules with the largest measuring up to 9 mm. Blood cultures were obtained. She was treated with Rocephin, Toradol, and 2 L of IV fluids bolus. Patient denies a known history of anemia. Her hemoglobin in March 2023 was 13.5 in [facility]. Patient does note that she did have a heart attack in August 2023. She was treated at [facility]. She states that she did receive a stent and was placed on blood thinners at that time. She denies any blood in her stool. She denies melena. She reports she had a colonoscopy about 3 years ago [place] that had some benign polyps but otherwise was unremarkable. She denies any family history of known anemia. Patient presented to [facility] for sepsis secondary to UTI, pyelonephritis, received IV antibiotics, so far urine cultures within normal limits, blood cultures no growth, managed with over 72 hours of IV antibiotics, discharged on 5 remaining days of p.o. Levaquin instructions to hydrate well, see primary care provider next week Patient's hospital course was complicated with acute anemia multifactorial from GI bleed, sepsis, septic shock, as she was on aspirin and Effient for her CAD and stent placement she underwent EGD and colonoscopy, she was found to have internal hemorrhoids which were nonbleeding and was found to have a hiatal hernia no acute signs of bleeding. Nonetheless she was found to have iron deficiency anemia given 1 dose of IV Venofer. Discharged on p.o. iron. For her anemia she should follow-up with her primary care provider on Sunday for recheck hemoglobin. If she is persistently anemic, she is in need referral to GI in [place] for capsule endoscopy. In addition she will need referral to hematology oncology for possible bone marrow evaluation for persistent anemia. Hemoglobin at discharge was 8.4 In terms of her CAD she did have elevated troponin during hospitalization no chest pain likely secondary to sepsis septic shock UTI, continue aspirin, Effient, follow-up with primary care provider as outpatient I adamantly had a discussion with patient about smoking cessation counseling risk of CAD, risk of adverse events Physical Exam Const: COMMON NORMALS: no acute distress and patient oriented x3 Resp: COMMON NORMALS: normal respiratory effort, No retractions, No use of accessory muscles and clear to auscultation bilaterally AUSCULTATION: clear to auscultation bilaterally Cardio: COMMON NORMALS: regular rate, regular rhythm, S1 normal heart sound present and S2 normal heart sound present RATE: regular rate RHYTHM: regular rhythm HEART SOUNDS: S1 normal heart sound present and S2 normal heart sound present GI: COMMON NORMALS: Normal to inspection, nondistended, normoactive bowel sounds present and non-tender Extremity: COMMON NORMALS: no pedal edema Neuro: COMMON NORMALS: patient oriented x3 Psych: COMMON NORMALS: mental status grossly normal Discharge Data Studies Completed and Pending Completed Studies During Hospitalization Category Date Time Status XR chest 1V portable [id number] Routine Exams 12/31/23 02:43 Completed Pending at discharge Category Date Time Status Blood Culture Routine Lab 12/31/23 04:19 Results Pathology: Surgical [PTH] Routine Pth 01/02/24 14:39 Received Radiology Impressions Chest X-Ray 12/31/23 02:43 IMPRESSION: No acute cardiopulmonary disease. Laboratory Results WBC 7.77 10^3/uL (3.29-11.43) 01/03/24 04:44 RBC 3.28 10^6/uL (3.85-5.65) L 01/03/24 04:44 Hgb 8.40 g/dL (11.27-16.99) L 01/03/24 04:44 Hct 28.3 % (36-47) L 01/03/24 04:44 MCV 86.3 fl (85-98) 01/03/24 04:44 MCH 25.6 pg (27-33) L 01/03/24 04:44 MCHC 29.7 g/dL (30-55) L 01/03/24 04:44 RDW 15.9 % (12.1-15.1) H 01/03/24 04:44 Plt Count 267 10^3/cmm (157-399) 01/03/24 04:44 MPV 9.2 fL (7.4-10.4) 01/03/24 04:44 Neut % (Auto) 66.7 % 01/03/24 04:44 Lymph % (Auto) 18.3 % 01/03/24 04:44 [place] % (Auto) 11.6 % 01/03/24 04:44 Eos % (Auto) 2.6 % 01/03/24 04:44 Baso % (Auto) 0.4 % 01/03/24 04:44 Neut # (Auto) 5.19 10^3/uL (1.8-7.7) 01/03/24 04:44 Lymph # (Auto) 1.4 10^3/uL (0.8-4.8) 01/03/24 04:44 [place] # (Auto) 0.9 10^3/uL (0.2-0.9) 01/03/24 04:44 Eos # (Auto) 0.2 10^3/uL (0.0-0.8) 01/03/24 04:44 Baso # (Auto) 0.0 10^3/uL (0.0-0.1) 01/03/24 04:44 Nucleated RBC % (auto) 0 % 01/03/24 04:44 Nucleated RBCs # 0.0 /100WBC 01/03/24 04:44 Haptoglobin 221.0 mg/L (30-200) H 12/31/23 02:46 PT 12.90 SECONDS (12.1-14.9) 01/03/24 04:44 INR 0.94 (0.8-1.2) 01/03/24 04:44 Sodium 140 mmol/L (136-145) 01/03/24 04:44 Potassium 3.6 mmol/L (3.5-5.1) 01/03/24 04:44 Chloride 107 mmol/L (98-107) 01/03/24 04:44 Carbon Dioxide 21 mmol/L (22-29) L 01/03/24 04:44 Anion Gap 15.6 (5-19) 01/03/24 04:44 BUN 8 mg/dL (8-23) 01/03/24 04:44 Creatinine 0.6 mg/dL (0.5-0.9) 01/03/24 04:44 GFR Calculation 100.3 mL/min (90-130) 01/03/24 04:44 Glucose 93 mg/dL (65-115) 01/03/24 04:44 Calculated Osmolality 288 mOsm/kg (285-295) 01/03/24 04:44 Lactic Acid 1.3 mmol/L (0.5-2.2) 12/31/23 11:38 Lactic Acid (Sepsis) 0.9 mmol/L (0.5-2.2) 12/31/23 05:49 Lactate 2.1 mmol/L (0.5-2.2) 01/03/24 04:44 Calcium 8.4 mg/dL (8.5-10.5) L 01/03/24 04:44 Phosphorus 1.5 mg/dL (2.5-4.5) L 01/03/24 04:44 Magnesium 1.8 mg/dL (1.7-2.3) 01/03/24 04:44 Iron 8 ug/dL (37-145) L 12/31/23 02:46 Iron Cancelled 12/31/23 02:46 TIBC 311 mcg/dl 12/31/23 02:46 % Saturation 2.5 % (20-50) L 12/31/23 02:46 Unsat Iron Binding 303 ug/dL (112-347) 12/31/23 02:46 Ferritin 25 ng/mL (15-150) 12/31/23 02:46 Total Bilirubin 0.3 mg/dL (0.15-1.2) 01/03/24 04:44 AST 38 U/L (0-32) H 01/03/24 04:44 ALT 27 U/L (0-33) 01/03/24 04:44 Alkaline Phosphatase 145 U/L (35-105) H 01/03/24 04:44 Lactate Dehydrogenase 179 U/L (135-214) 12/31/23 02:46 Troponin T Baseline 19 ng/L (0-10) H 12/31/23 15:23 Troponin T 120 Minute 19.82 ng/L (0-10) H 12/31/23 18:15 Delta Troponin T 0.82 ABS# (0-10) 12/31/23 18:15 Troponin T Hi Sens 6Hr 33.61 ng/L (0-10) H 12/31/23 21:09 Troponin T Hi Sens 6Hr Delta 14.61 ng/L (0-12) H* 12/31/23 21:09 C-Reactive Protein 30.5 mg/L (0.0-4.9) H 01/03/24 04:44 NT-Pro-B Natriuret Pep 2517 pg/mL (0-125) H 12/31/23 02:46 Total Protein 6.4 g/dL (6.6-8.7) L 01/03/24 04:44 Albumin 3.4 g/dL (3.5-5.2) L 01/03/24 04:44 Globulin 3.0 g/dL (1.3-4.6) 01/03/24 04:44 Vitamin B12 747 pg/mL (232-1245) 12/31/23 02:46 Procalcitonin 2.00 ng/mL (0-0.5) H 01/03/24 04:44 Urine Color Yellow (Yellow) 12/31/23 09:04 Urine Appearance Sl hazy (CLEAR) A 12/31/23 09:04 Urine pH 5 (5-7) 12/31/23 09:04 Ur Specific Rachel 1.015 (1.005-1.030) 12/31/23 09:04 Urine Protein 1+ (Negative) H 12/31/23 09:04 Urine Glucose (UA) Norm (Normal) 12/31/23 09:04 Urine Ketones 1+ (Negative) H 12/31/23 09:04 Urine Blood 2+ (Negative) H 12/31/23 09:04 Urine Nitrate Positive (Negative) H 12/31/23 09:04 Urine Bilirubin Neg (Negative) 12/31/23 09:04 Urine Urobilinogen Neg mg/dL (Negative) 12/31/23 09:04 Ur Leukocyte Esterase 1+ (Negative) H 12/31/23 09:04 Urine RBC 0-4 /hpf (0-2) H 12/31/23 09:04 Urine WBC 55-80 /hpf (0-5) H 12/31/23 09:04 Ur Squamous Epith Cells 0-4 /hpf (0-5) H 12/31/23 09:04 Amorphous Sediment Not Reportable 12/31/23 09:04 Urine Bacteria 1+ /hpf (NONE) H 12/31/23 09:04 Hyaline Casts Rare /lpf 12/31/23 09:04 Urine Mucus Trace /hpf 12/31/23 09:04 MRSA (PCR) Not detected (NOT DETECTED) 12/31/23 02:34 Blood Type O Positive 12/31/23 04:15 Rho(D) Type Rh positive 12/31/23 04:15 Antibody Screen Negative 12/31/23 04:15 Crossmatch See Detail 12/31/23 04:15 Vitals Last Vital Signs Temp 98.6 F 01/03/24 07:46 Pulse 85 01/03/24 08:12 Resp 16 01/03/24 08:12 BP 106/64 01/03/24 07:46 Pulse Ox 95 01/03/24 08:12 O2 Del Method Room Air 01/03/24 08:12 O2 Flow Rate 1 01/02/24 12:45 Discharge Plan Discharge Patient Disposition: Home Condition: Stable Prescriptions: New ferrous sulfate 325 mg (65 mg iron) tablet 325 mg PO DAILY 30 Days Qty: 30 0RF levofloxacin 750 mg tablet 750 mg PO DAILY 5 Days Qty: 5 0RF Continued melatonin 5 mg capsule 5 mg PO DAILY PRN (Reason: sleep) 30 Days Qty: 30 1RF gabapentin 600 mg tablet 600 mg PO Q8H 90 Days Qty: 270 1RF clonazepam 1 mg tablet 1 mg PO Q8H PRN (Reason: anxiety) 30 Days Qty: 90 2RF zolpidem 10 mg tablet 10 mg PO .nightly 30 Days Qty: 30 3RF albuterol sulfate [ProAir HFA] 90 mcg/actuation HFA aerosol inhaler 2 puff inhalation Q6H PRN (Reason: shortness of breath or wheezing) Qty: 8.5 3RF citalopram 40 mg tablet 40 mg PO DAILY 90 Days Qty: 90 1RF fluticasone propionate [Flonase Allergy Relief] 50 mcg/actuation spray,suspension 1 spray intranasal DAILY Qty: 16 5RF Rx Instructions: administer into each nostril fluticasone propion-salmeterol [Advair Diskus] 100-50 mcg/dose blister with device 1 inh inhalation BID Qty: 60 3RF pantoprazole 20 mg tablet,delayed release (DR/EC) 20 mg PO DAILY 90 Days Qty: 90 1RF ipratropium-albuterol 0.5 mg-3 mg(2.5 mg base)/3 mL solution for nebulization 3 ml inhalation QID PRN (Reason: wheezing) Qty: 90 0RF aspirin 81 mg tablet,chewable 81 mg PO DAILY 90 Days Qty: 90 1RF atorvastatin 80 mg tablet 80 mg PO DAILY 90 Days Qty: 90 1RF metoprolol succinate 25 mg tablet extended release 24 hr 12.5 mg PO DAILY 90 Days Qty: 90 1RF nitroglycerin 0.4 mg tablet, sublingual 0.4 mg sublingual Q5M PRN (Reason: chest pain) 90 Days Qty: 90 0RF Rx Instructions: do not exceed 3 doses per episode prasugrel [Effient] 10 mg tablet 10 mg PO DAILY 90 Days Qty: 90 1RF Discontinued losartan 50 mg tablet 50 mg PO DAILY No Action (DME) nebulizer machine See Rx Instructions .Route .MEDSUPPLY Qty: 1 0RF Rx Instructions: As directed Discharge Orders: Discharge Order (Routine); Ordered 01/03/24 Ordered By: Brent Ortiz Referrals: Rudy Molina DO [Physician] - 2 weeks ALLEN Molina, SANDOR [Primary Care Provider] - 4-7 days Discharge Diet: Cardiac Discharge Activity: Resume usual activity Patient Instructions: GI Discharge Instructions, Opioid Safety Activity Restrictions/Additional Instructions: - Please hydrate well -Please take antibiotics as prescribed -Please stop smoking -Please take iron -Please follow-up with your primary care provider on Sunday for recheck hemoglobin -For your anemia, iron deficiency anemia, if your hemoglobin continues to be on the lower end please see hematology oncology -You might need referral to GI in [place] for capsule endoscopy if you have persistent anemia Discharge Attestations Time Spent in Discharge Care*: greater than 30 min Time Spent in Smoking Cessation: more than 10 minutes Quality Metrics Clinical Quality Measures [ No reported AMI, CVA or VTE this stay] Coding Level of Care Code 16348 Total time (in minutes) for Discharge: 45 Diagnoses GI bleed K92.2 Iron deficiency anemia D50.9
[2024-01-03] MEDS: iron sucrose 200 MG in sodium chloride 0.9% (100 ml) 100 ML 220 MG IV (10:54)
--- NOTE | 2024-01-03 12:06 | PC.NURSE ---
THIS RN ATTEMPTS TO PLACE IV IN THE RIGHT HAND. IV RUPTURES VEIN. MODERATE SWELLING NOTED. DENIES PAIN. IV SUCCESSFULLY PLACED TO RIGHT FA FOR IRON ADMINISTRATION.
== END 2024-01-03 13:20 | disposition home or self-care (01) | DRG 871 ==
LOC: MEDSURG 07:58 → ICU 15:52 → MEDSURG 01-02 20:33
PROVIDERS: Surgery; Admitting Provider Internal Medicine; PCP Nurse Practitioner Family; Visit Provider Family Medicine
PROC: 0DJ08ZZ Inspection of Upper Intestinal Tract, Via Natural or Artificial Opening Endoscopic (ICD-10-PCS; CPT 43235; principal; 2024-01-02 13:30)
PROC: 0DJD8ZZ Inspection of Lower Intestinal Tract, Via Natural or Artificial Opening Endoscopic (ICD-10-PCS; CPT 45378; 2024-01-02 13:30)
DX: A41.9 Sepsis, unspecified organism (principal); J96.01 Acute respiratory failure with hypoxia; R65.21 Severe sepsis with septic shock; N39.0 Urinary tract infection, site not specified; N12 Tubulo-interstitial nephritis, not specified as acute or chronic; E87.20 Acidosis, unspecified; K92.2 Gastrointestinal hemorrhage, unspecified; I25.10 Atherosclerotic heart disease of native coronary artery without angina pectoris; I25.2 Old myocardial infarction; K21.9 Gastro-esophageal reflux disease without esophagitis; F41.9 Anxiety disorder, unspecified; F32.A Depression, unspecified; J44.9 Chronic obstructive pulmonary disease, unspecified; R91.8 Other nonspecific abnormal finding of lung field; N32.81 Overactive bladder; N39.3 Stress incontinence (female) (male); F17.210 Nicotine dependence, cigarettes, uncomplicated; D50.9 Iron deficiency anemia, unspecified; K44.9 Diaphragmatic hernia without obstruction or gangrene; K64.8 Other hemorrhoids; Z79.82 Long term (current) use of aspirin; Z95.5 Presence of coronary angioplasty implant and graft; Z86.010 Personal history of colon polyps; Z87.01 Personal history of pneumonia (recurrent); Z87.440 Personal history of urinary (tract) infections
CPT/HCPCS: 36415; 36430; 43239; 71045; 80053; 81001; 82274; 82607; 82728; 83010; 83540; 83550; 83605; 83615; 83735; 83880; 84100; 84145; 84484; 85014; 85018; 85025; 85610; 86140; 86850; 86900; 86920; 87040; 87086; 87641; 88305; 88342; 93005; 94640; 96376; C9113; G0121; J0696; J1170; J1756; J2185; J2405; J2704; J7030; J7120; J7626; P9016

== ENCOUNTER → 2024-01-07 13:32 | Outpatient (BNVA) | payer MEDICARE, SELFPAY | PROVIDERS: PCP Nurse Practitioner Family; Visit Provider Nurse Practitioner Family | DX: D64.9 Anemia, unspecified (principal) | CPT/HCPCS: 85025 ==

== ENCOUNTER → 2024-01-09 14:19 | Outpatient (BNVA) | payer MEDICARE, SELFPAY | PROVIDERS: PCP Nurse Practitioner Family; Visit Provider Nurse Practitioner Family | DX: N39.0 Urinary tract infection, site not specified (principal) | CPT/HCPCS: 81000 ==

== ENCOUNTER → 2024-01-17 07:50 | Outpatient (BNVA) | payer MEDICARE, SELFPAY | PROVIDERS: PCP Nurse Practitioner Family; Visit Provider Surgery | DX: Z09 Encounter for follow-up examination after completed treatment for conditions other than malignant neoplasm (principal); K21.9 Gastro-esophageal reflux disease without esophagitis; D50.9 Iron deficiency anemia, unspecified; K64.8 Other hemorrhoids | CPT/HCPCS: 99204 ==

== ENCOUNTER 2024-01-31 16:47 | Observation (INO) | payer MEDICARE, SELFPAY ==
[2024-01-31] VITALS (9 sets, daily range): BP systolic 108–124; BP diastolic 67–70; PULSE 67–70; RESP 16–18; TEMP 36.6; O2SAT 91–96; BMI 22.1
--- NOTE | 2024-01-31 17:06 | ED_ITS ---
Documented by User: Bryan Werner DO 02/01/24 06:09 HPI - Abdominal Pain 2 General: Chief Complaint: Abdominal Pain Stated Complaint: weakness, uti Time Seen by Provider: 01/31/24 16:49 Source: patient Mode of arrival: ambulatory History of Present Illness: 63-year-old female presents emergency ro om with complaint of abdominal pain began yesterday she had poor appetite is exquisitely tender she refers most of the pain to periumbilical epigastric area. She was hospital hospitalized last month for a GI bleed. She tells me that she has had recurrent urinary tract infections in the past and has been hospitalized for sepsis related to that previously. She had a low-grade subjective fever at home. She has some right flank pain associated with it as well. No nausea, vomiting no diarrhea MD elicited complaint: abdominal pain Pertinent past history: past UTI Onset (ago): day(s) (1) Pain Consistency: constant Location: Diffuse Severity: moderate Quality: sharp Exacerbating factors: nothing Relieving factors: nothing Associated Symptoms: Reports bloating, GI cramping and poor appetite; Denies anorexia, belching, change in bowel habits, change in stool character, chills, coffee ground emesis, constipation, diarrhea, dyspepsia, dysuria, excessive flatus, fever(s), heartburn, hematochezia, hematuria, hematemesis, fecal incontinence, loose stools, melena, nausea, syncope and vomiting Review of Systems 2 Const: Denies: fever(s) or chills Card: Denies: chest pain or syncope Resp: Denies: dyspnea GI: Reports: abdominal pain, bloating and GI cramping; Denies: nausea, vomiting, hematemesis, coffee ground emesis, heartburn, diarrhea, constipation, belching, excessive flatus, fecal incontinence, change in bowel habits, change in stool character, hematochezia or melena : Denies: dysuria, urinary frequency, urinary urgency or hematuria Musc: Denies: neck pain or back pain Skin/Breast: Denies: rash PFSH ED 2 PFSH: Medical History Needs smoking cessation education STEMI (ST elevation myocardial infarction) Greater trochanteric bursitis of right hip Greater trochanteric bursitis of left hip Hip osteoarthritis PNA (pneumonia) COPD exacerbation Diffuse wheezing Overactive bladder Stress incontinence Sciatica Dental infection Sinusitis Encounter for smoking cessation counseling Allergic rhinitis Lumbar radiculopathy Colon polyp Patient reports several colon polyps removed at [place], and states she has not had followup. History of ST elevation myocardial infarction (STEMI) STEMI with Stent Placement 08/31/2023 Treated at [facility] syndrome Vitamin D deficiency Fatigue Medication management UTI (urinary tract infection), bacterial Dysuria Pelvic pain Nausea Hypoactive bowel sounds Lower respiratory infection Shortness of breath Exposure to confirmed case of COVID-19 Chronic hip pain Insomnia GERD (gastroesophageal reflux disease) Conversion disorder Anxiety Depression COPD (chronic obstructive pulmonary disease) Surgical History History of heart artery stent Family History Father No problems noted. Denies family history of Anemia Social History Smoking and tobacco/nicotine status: current every day tobacco/nicotine user Alcohol intake: never Substance/Drug Use: never Physical Exam 2 Const: GENERAL APPEARANCE: cooperative and comfortable O RIENTATION/CONSCIOUSNESS: Yes awake, Yes oriented to person, Yes oriented to place and Yes oriented to time HENMT: COMMON NORMALS: normocephalic, atraumatic and hearing grossly normal bilaterally HEAD & SCALP: normocephalic and atraumatic Resp: COMMON NORMALS: normal respiratory effort, No retractions, No use of accessory muscles and clear to auscultation bilaterally AUSCULTATION: clear to auscultation bilaterally Cardio: COMMON NORMALS: regular rate, regular rhythm and No murmurs present (Cardio) RATE: regular rate RHYTHM: regular rhythm GI: COMMON NORMALS: No hepatosplenomegaly present AUSCULTATION: Yes normoactive bowel sounds PALPATION: Yes Tenderness to palpation present (GI) (Diffuse), Yes Guarding due to palpation present (GI) and Yes No hepatosplenomegaly present Extremity: COMMON NORMALS: normal to inspection, capillary refill normal, no clubbing, cyanosis or edema, no calf tenderness and no pedal edema Neuro: SENSORIUM/ORIENTATION: Yes oriented to person, Yes oriented to place and Yes oriented to time Skin: COMMON NORMALS: no rashes or lesions noted GENERAL SKIN EXAM: no rashes or lesions noted Course 2 Vital Signs: Vital signs: Vital Signs Temperature 97.9 F 02/01/24 04:00 Pulse Rate 76 02/01/24 04:00 Respiratory Rate 17 02/01/24 04:00 Blood Pressure 90/62 02/01/24 04:00 Pulse Oximetry 92 02/01/24 04:00 Oxygen Delivery Me thod Room Air 02/01/24 04:00 MDM - Abdominal Pain Medical Decision Making Care signed out to Dr. Menchaca at change of shift. See final notes for diagnosis and disposition. I have discussed the patient's case with the off going physician <Dr. Werner> and I have assumed care of the patient. We have discussed the current lab/radiographic results that have been resulted and the pending tests. Vital signs currently stable patient reevaluated after receiving pain meds and she states that she has improved pain control. We are currently waiting for CT scan to be completed and resulted. Lab Data 02/01/24 04:34 02/01/24 04:34 Labs/Radiology: Radiology Impressions Abdomen/Pelvis CT 01/31/24 17:06 IMPRESSION: 1. No acute intra-abdominal or pelvic process. 2. Other nonemergent findings above. COMMENTS: Consistent with the [employer]'s Incidental Findings Committee white paper (J Am Karri Radiol 2018): Any incidental renal lesion less than 1 cm or classified as too small to characterize, or any incidental cystic renal lesion characterized as simple-appearing, is likely benign. No follow-up imaging is recommended for these lesions per consensus recommendations based on imaging criteria. Chest X-Ray 01/31/24 17:06 IMPRESSION: No acute cardiopulmonary disease. Laboratory Results WBC 16.37 10^3/uL (3.29-11.43) H 01/31/24 17:35 RBC 4.02 10^6/uL (3.85-5.65) 01/31/24 17:35 Hgb 11.40 g/dL (11.27-16.99) 01/31/24 17:35 Hct 37.4 % (36-47) 01/31/24 17:35 MCV 93.0 fl (85-98) 01/31/24 17:35 MCH 28.4 pg (27-33) 01/31/24 17:35 MCHC 30.5 g/dL (30-55) 01/31/24 17:35 RDW 22.1 % (12.1-15.1) H 01/31/24 17:35 Plt Count 266 10^3/cmm (157-399) 01/31/24 17:35 MPV 10.1 fL (7.4-10.4) 01/31/24 17:35 Neut % (Auto) 78.5 % 01/31/24 17:35 Lymph % (Auto) 13.0 % 01/31/24 17:35 [place] % (Auto) 6.5 % 01/31/24 17:35 Eos % (Auto) 1.2 % 01/31/24 17:35 Baso % (Auto) 0.4 % 01/31/24 17:35 Neut # (Auto) 12.86 10^3/uL (1.8-7.7) H 01/31/24 17:35 Lymph # (Auto) 2.1 10^3/uL (0.8-4.8) 01/31/24 17:35 [place] # (Auto) 1.1 10^3/uL (0.2-0.9) H 01/31/24 17:35 Eos # (Auto) 0.2 10^3/uL (0.0-0.8) 01/31/24 17:35 Baso # (Auto) 0.1 10^3/uL (0.0-0.1) 01/31/24 17:35 Nucleated RBC % (auto) 0 % 01/31/24 17:35 Nucleated RBCs # 0.0 /100WBC 01/31/24 17:35 D-Dimer 0.59 ug/mLFEU (0-0.59) 01/31/24 17:35 Sodium 141 mmol/L (136-145) 01/31/24 17:35 Potassium 4.1 mmol/L (3.5-5.1) 01/31/24 17:35 Chloride 107 mmol/L (98-107) 01/31/24 17:35 Carbon Dioxide 21 mmol/L (22-29) L 01/31/24 17:35 Anion Gap 17.1 (5-19) 01/31/24 17:35 BUN 9 mg/dL (8-23) 01/31/24 17:35 Creatinine 0.6 mg/dL (0.5-0.9) 01/31/24 17:35 GFR Calculation 100.3 mL/min (90-130) 01/31/24 17:35 Glucose 80 mg/dL (65-115) 01/31/24 17:35 Estimat Average Glucose 82 01/31/24 17:35 Hemoglobin A1c 4.5 % (4.0-6.0) 01/31/24 17:35 Calculated Osmolality 290 mOsm/kg (285-295) 01/31/24 17:35 Lactic Acid 1.1 mmol/L (0.5-2.2) 01/31/24 17:35 Calcium 9.4 mg/dL (8.5-10.5) 01/31/24 17:35 Total Bilirubin 0.3 mg/dL (0.15-1.2) 01/31/24 17:35 AST 24 U/L (0-32) 01/31/24 17:35 ALT 23 U/L (0-33) 01/31/24 17:35 Alkaline Phosphatase 176 U/L (35-105) H 01/31/24 17:35 Troponin T 5th Gen ng/L < 6 ng/L (0-10) 01/31/24 17:35 Total Protein 7.2 g/dL (6.6-8.7) 01/31/24 17:35 Albumin 4.5 g/dL (3.5-5.2) 01/31/24 17:35 Globulin 2.7 g/dL (1.3-4.6) 01/31/24 17:35 Lipase 167 U/L (13-60) H 01/31/24 17:35 Vitamin B12 901 pg/mL (232-1245) 01/31/24 17:35 TSH 1.92 uIU/mL (0.27-4.20) 01/31/24 17:35 Urine Color Yellow (Yellow) 01/31/24 17:45 Urine Appearance Clear (CLEAR) 01/31/24 17:45 Urine pH 6 (5-7) 01/31/24 17:45 Ur Specific Danielson 1.015 (1.005-1.030) 01/31/24 17:45 Urine Protein Neg (Negative) 01/31/24 17:45 Urine Glucose (UA) Norm (Normal) 01/31/24 17:45 Urine Ketones Negative (Negative) 01/31/24 17:45 Urine Blood Neg (Negative) 01/31/24 17:45 Urine Nitrate Negative (Negative) 01/31/24 17:45 Urine Bilirubin Neg (Negative) 01/31/24 17:45 Urine Urobilinogen Norm mg/dL (Negative) 01/31/24 17:45 Ur Leukocyte Esterase Negative (Negative) 01/31/24 17:45 Discharge Plan Discharge Patient Disposition: Admitted As Inpatient Admit Provider: Bettie Coley Clinical Impression: Abdominal pain, Nausea & vomiting Acute pancreatitis Qualifiers: Pancreatitis type: unspecified pancreatitis type Acute pancreatitis complication: unspecified Qualified Code(s): K85.90 - Acute pancreatitis without necrosis or infection, unspecified Condition: Stable Coding Level of Care Code ED Appraisal Analyst for Chg Fwd Documented by User: Mitul Menchaca MD 01/31/24 19:37 HPI - Abdominal Pain 2 General: Chief Complaint: Abdominal Pain Stated Complaint: weakness, uti Time Seen by Provider: 01/31/24 16:49 PFS ED 2 PFSH: Medical History Needs smoking cessation education STEMI (ST elevation myocardial infarction) Greater trochanteric bursitis of right hip Greater trochanteric bursitis of left hip Hip osteoarthritis PNA (pneumonia) COPD exacerbation Diffuse wheezing Overactive bladder Stress incontinence Sciatica Dental infection Sinusitis Encounter for smoking cessation counseling Allergic rhinitis Lumbar radiculopathy Colon polyp Patient reports several colon polyps removed at [place], and states she has not had followup. History of ST elevation myocardial infarction (STEMI) STEMI with Stent Placement 08/31/2023 Treated at [facility] syndrome Vitamin D deficiency Fatigue Medication management UTI (urinary tract infection), bacterial Dysuria Pelvic pain Nausea Hypoactive bowel sounds Lower respiratory infection Shortness of breath Exposure to confirmed case of COVID-19 Chronic hip pain Insomnia GERD (gastroesophageal reflux disease) Conversion disorder Anxiety Depression COPD (chronic obstructive pulmonary disease) Surgical History History of heart artery stent Family History Father No problems noted. Denies family history of Anemia Social History Smoking and tobacco/nicotine status: current every day tobacco/nicotine user Alcohol intake: never Substance/Drug Use: never Course 2 Vital Signs: Vital signs: Vital Signs Temperature 97.9 F 02/01/24 04:00 Pulse Rate 76 02/01/24 04:00 Respiratory Rate 17 02/01/24 04:00 Blood Pressure 90/62 02/01/24 04:00 Pulse Oximetry 92 02/01/24 04:00 Oxygen Delivery Me thod Room Air 02/01/24 04:00 MDM - Abdominal Pain Medical Decision Making I have discussed the patient's case with the off going physician <Dr. Werner> and I have assumed care of the patient. We have discussed the current lab/radiographic results that have been resulted and the pending tests. Vital signs currently stable patient reevaluated after receiving pain meds and she states that she has improved pain control. We are currently waiting for CT scan to be completed and resulted. Medical Records I reviewed the patient's medical records. Lab Data I reviewed the patient's lab results. 02/01/24 04:34 02/01/24 04:34 Labs/Radiology: Radiology Impressions Abdomen/Pelvis CT 01/31/24 17:06 IMPRESSION: 1. No acute intra-abdominal or pelvic process. 2. Other nonemergent findings above. COMMENTS: Consistent with the [employer]'s Incidental Findings Committee white paper (J Am Karri Radiol 2018): Any incidental renal lesion less than 1 cm or classified as too small to characterize, or any incidental cystic renal lesion characterized as simple-appearing, is likely benign. No follow-up imaging is recommended for these lesions per consensus recommendations based on imaging criteria. Chest X-Ray 01/31/24 17:06 IMPRESSION: No acute cardiopulmonary disease. Laboratory Results WBC 16.37 10^3/uL (3.29-11.43) H 01/31/24 17:35 RBC 4.02 10^6/uL (3.85-5.65) 01/31/24 17:35 Hgb 11.40 g/dL (11.27-16.99) 01/31/24 17:35 Hct 37.4 % (36-47) 01/31/24 17:35 MCV 93.0 fl (85-98) 01/31/24 17:35 MCH 28.4 pg (27-33) 01/31/24 17:35 MCHC 30.5 g/dL (30-55) 01/31/24 17:35 RDW 22.1 % (12.1-15.1) H 01/31/24 17:35 Plt Count 266 10^3/cmm (157-399) 01/31/24 17:35 MPV 10.1 fL (7.4-10.4) 01/31/24 17:35 Neut % (Auto) 78.5 % 01/31/24 17:35 Lymph % (Auto) 13.0 % 01/31/24 17:35 [place] % (Auto) 6.5 % 01/31/24 17:35 Eos % (Auto) 1.2 % 01/31/24 17:35 Baso % (Auto) 0.4 % 01/31/24 17:35 Neut # (Auto) 12.86 10^3/uL (1.8-7.7) H 01/31/24 17:35 Lymph # (Auto) 2.1 10^3/uL (0.8-4.8) 01/31/24 17:35 [place] # (Auto) 1.1 10^3/uL (0.2-0.9) H 01/31/24 17:35 Eos # (Auto) 0.2 10^3/uL (0.0-0.8) 01/31/24 17:35 Baso # (Auto) 0.1 10^3/uL (0.0-0.1) 01/31/24 17:35 Nucleated RBC % (auto) 0 % 01/31/24 17:35 Nucleated RBCs # 0.0 /100WBC 01/31/24 17:35 D-Dimer 0.59 ug/mLFEU (0-0.59) 01/31/24 17:35 Sodium 141 mmol/L (136-145) 01/31/24 17:35 Potassium 4.1 mmol/L (3.5-5.1) 01/31/24 17:35 Chloride 107 mmol/L (98-107) 01/31/24 17:35 Carbon Dioxide 21 mmol/L (22-29) L 01/31/24 17:35 Anion Gap 17.1 (5-19) 01/31/24 17:35 BUN 9 mg/dL (8-23) 01/31/24 17:35 Creatinine 0.6 mg/dL (0.5-0.9) 01/31/24 17:35 GFR Calculation 100.3 mL/min (90-130) 01/31/24 17:35 Glucose 80 mg/dL (65-115) 01/31/24 17:35 Estimat Average Glucose 82 01/31/24 17:35 Hemoglobin A1c 4.5 % (4.0-6.0) 01/31/24 17:35 Calculated Osmolality 290 mOsm/kg (285-295) 01/31/24 17:35 Lactic Acid 1.1 mmol/L (0.5-2.2) 01/31/24 17:35 Calcium 9.4 mg/dL (8.5-10.5) 01/31/24 17:35 Total Bilirubin 0.3 mg/dL (0.15-1.2) 01/31/24 17:35 AST 24 U/L (0-32) 01/31/24 17:35 ALT 23 U/L (0-33) 01/31/24 17:35 Alkaline Phosphatase 176 U/L (35-105) H 01/31/24 17:35 Troponin T 5th Gen ng/L < 6 ng/L (0-10) 01/31/24 17:35 Total Protein 7.2 g/dL (6.6-8.7) 01/31/24 17:35 Albumin 4.5 g/dL (3.5-5.2) 01/31/24 17:35 Globulin 2.7 g/dL (1.3-4.6) 01/31/24 17:35 Lipase 167 U/L (13-60) H 01/31/24 17:35 Vitamin B12 901 pg/mL (232-1245) 01/31/24 17:35 TSH 1.92 uIU/mL (0.27-4.20) 01/31/24 17:35 Urine Color Yellow (Yellow) 01/31/24 17:45 Urine Appearance Clear (CLEAR) 01/31/24 17:45 Urine pH 6 (5-7) 01/31/24 17:45 Ur Specific Danielson 1.015 (1.005-1.030) 01/31/24 17:45 Urine Protein Neg (Negative) 01/31/24 17:45 Urine Glucose (UA) Norm (Normal) 01/31/24 17:45 Urine Ketones Negative (Negative) 01/31/24 17:45 Urine Blood Neg (Negative) 01/31/24 17:45 Urine Nitrate Negative (Negative) 01/31/24 17:45 Urine Bilirubin Neg (Negative) 01/31/24 17:45 Urine Urobilinogen Norm mg/dL (Negative) 01/31/24 17:45 Ur Leukocyte Esterase Negative (Negative) 01/31/24 17:45 All radiology interpretation(s) finalized by discharge Discharge Plan Discharge Patient Disposition: Admitted As Inpatient Admit Provider: Bettie Coley Clinical Impression: Abdominal pain, Nausea & vomiting Acute pancreatitis Qualifiers: Pancreatitis type: unspecified pancreatitis type Acute pancreatitis complication: unspecified Qualified Code(s): K85.90 - Acute pancreatitis without necrosis or infection, unspecified Condition: Stable Coding Level of Care Code ED Appraisal Analyst for Nancy Huang
--- NOTE | 2024-01-31 17:06 | XRR_ITS ---
PROCEDURE INFORMATION: Exam: XR Chest Exam date and time: 01/31/2024 5:34 PM Age: 63 years old Clinical indication: Cough and dyspnea; Additional info: Dyspnea/cough TECHNIQUE: Imaging protocol: Radiologic exam of the chest. Views: 1 view. COMPARISON: CR XR chest 1V portable [id number] 12/31/2023 5:25 AM FINDINGS: Lungs: Mild interstitial prominence, likely chronic. No consolidation. Pleural spaces: Unremarkable. No pleural effusion. No pneumothorax. Heart/Mediastinum: Unremarkable. No cardiomegaly. Bones/joints: Unremarkable. XR/XR chest 1V portable [id number] IMPRESSION: No acute cardiopulmonary disease.
--- NOTE | 2024-01-31 17:06 | CTR_ITS ---
PROCEDURE INFORMATION: Exam: CT Abdomen And Pelvis With Contrast Exam date and time: 01/31/2024 6:39 PM Age: 63 years old Clinical indication: Abdominal pain; Localized; Right lower quadrant (rlq); Additional info: Abd pain, elevated wbc TECHNIQUE: Imaging protocol: Computed tomography of the abdomen and pelvis with contrast. Radiation optimization: All CT scans at this facility use at least one of these dose optimization techniques: automated exposure control; mA and/or kV adjustment per patient size (includes targeted exams where dose is matched to clinical indication); or iterative reconstruction. Contrast material: OMNI 350; Contrast volume: 100 ml; Contrast route: INTRAVENOUS (IV); COMPARISON: CR XR hip RT 2-3V wo/w pel* [id number] 08/02/2023 1:08 PM RADIATION DOSE METRICS: Total DLP (mGy-cm): 353.78 FINDINGS: Lungs: Mild basilar atelectasis and/or scarring. Trace right pleural effusion. Heart: Heart size is within normal limits. There is no pericardial effusion or pericardial thickening. Diaphragm: Small hiatal hernia. Liver: The liver is normal. No hepatic masses are identified. Gallbladder and bile ducts: The gallbladder is normal. There is no ductal dilatation. Pancreas: The pancreas is normal. Spleen: The spleen is normal. Adrenal glands: The adrenal glands are normal. Kidneys and ureters: There are bilateral subcentimeter renal low-density lesions which are too small for accurate characterization, likely representing simple cysts. There is normal enhancement of the kidneys. No renal calcifications are identified. There is no hydronephrosis. Stomach and bowel: There is no large or small bowel obstruction. There is no evidence of bowel wall thickening. Appendix: A normal appendix is identified. Intraperitoneal space: No inflammatory changes are identified. There is no free fluid or fluid collection seen. There is no pneumoperitoneum. Vasculature: Atherosclerotic calcifications of the aorta are present. No aneurysm is identified. Lymph nodes: There are no enlarged retroperitoneal or mesenteric lymph nodes. Urinary bladder: The bladder is unremarkable. Reproductive: The uterus is present. Bones/joints: No acute osseous abnormalities are seen. Soft tissues: Small periumbilical hernia containing only fat. The soft tissues are otherwise within normal limits. CT/CT abdomen pelvis w con* [id number] IMPRESSION: 1. No acute intra-abdominal or pelvic process. 2. Other nonemergent findings above. COMMENTS: Consistent with the [employer] [place]'s Incidental Findings Committee white paper (J Am Karri Radiol 2018): Any incidental renal lesion less than 1 cm or classified as too small to characterize, or any incidental cystic renal lesion characterized as simple-appearing, is likely benign. No follow-up imaging is recommended for these lesions per consensus recommendations based on imaging criteria.
[2024-01-31] MEDS: sodium chloride 0.9% 1,000 ML 999 ML IV ×2 (17:46→19:35)
[2024-01-31 17:51] LABS: Add Urine Microscopic? NO; Charge for UA Resulting for Rev
[2024-01-31 17:55] LABS: Basophils # 0.1 10^3/uL (0.0-0.1); Basophils % 0.4 %; Eosinophils # 0.2 10^3/uL (0.0-0.8); Eosinophils % 1.2 %; Hematocrit 37.4 % (36-47); Lymphocytes # 2.1 10^3/uL (0.8-4.8); Mean Corpuscular HGB Conc 30.5 g/dL (30-55); Mean Corpuscular Hemoglobin 28.4 pg (27-33); Mean Platelet Volume 10.1 fL (7.4-10.4); Monocytes # 1.1 10^3/uL (0.2-0.9); Monocytes % 6.5 %; Neutrophils # 12.86 10^3/uL (1.8-7.7); Neutrophils % 78.5 %; Nucleated Red Blood Cells % 0 %; Platelet Count 266 10^3/cmm (157-399); Red Blood Count 4.02 10^6/uL (3.85-5.65); Red Cell Distribution Width 22.1 % (12.1-15.1); White Blood Count 16.37 10^3/uL (3.29-11.43)
[2024-01-31 17:57] LABS: Bilirubin Urine Neg (Negative); Blood Urine Neg (Negative); Glucose Urine UA Norm (Normal); Ketones Urine Negative (Negative); Leukocyte Esterase Urine Negative (Negative); Nitrate Urine Negative (Negative); Protein Urine Neg (Negative); Specific Gravity, Urine 1.015 (1.005-1.030); Urine Appearance Clear (CLEAR); Urine Color Yellow (Yellow); Urobilinogen Urine Norm (Negative); pH Urine 6 (5-7)
[2024-01-31] MEDS: morphine 4 mg/mL SDV 1 mL IVP (18:00)
[2024-01-31] MEDS: ondansetron 2 mg/ML SDV 2 mL 4 MG IVP (18:01)
[2024-01-31 18:17] LABS: Lactic Sepsis W/Reflex 1.1 mmol/L (0.5-2.2)
[2024-01-31 18:23] LABS: Alanine Aminotransferase 23 U/L (0-33); Albumin Level 4.5 g/dL (3.5-5.2); Alkaline Phosphatase 176 U/L (35-105); Anion Gap 17.1 (5-19); Aspartate Amino Transferase 24 U/L (0-32); Blood Urea Nitrogen 9 mg/dL (8-23); Calcium 9.4 mg/dL (8.5-10.5); Carbon Dioxide 21 mmol/L (22-29); Chloride 107 mmol/L (98-107); Globulin 2.7 g/dL (1.3-4.6); Glomerular Filtration Rate 100.3 mL/min (90-130); Glucose 80 mg/dL (65-115); Lipase 167 U/L (13-60); Osmolality Calculated 290 mOsm/kg (285-295); Potassium 4.1 mmol/L (3.5-5.1); Sodium 141 mmol/L (136-145); Total Bilirubin 0.3 mg/dL (0.15-1.2); Total Protein 7.2 g/dL (6.6-8.7)
[2024-01-31] MEDS: iohexol 350 mg/mL 500 mL Btl (per mL) IV (18:40)
[2024-01-31] MEDS: fentaNYL 50 mcg/mL INJ 2mL IVP (19:37)
--- NOTE | 2024-01-31 20:23 | P.HP_ITS ---
Providers/Chief Complaint 2 Admitting Physician: Bettie Coley MD Chief Complaint: weakness, uti History of Present Illness Silke Camp is a 63 year old female who present to the hospital with chief complaint of bilateral flank pain which is radiating towards her epigastric region. Patient is not endorsing nausea vomiting, no fever, chest pain or shortness of breath. Patient stating that she was recently treated for sepsis related to UTI. At home her abdominal pain was getting worse which prompted her visit to the ER. In the ER numbers are consistent with dehydration lipase is 160 CT abdomen/pelvis unremarkable pancreatitis, no CBD dilation, bilirubin normal, afebrile, normal hemodynamics. Patient looks dehydrated. Patient is an active smoker has history of coronary disease. Review of Systems 2 Eyes: Denies: change in vision ENMT: Denies: throat pain Card: Denies: chest pain Resp: Denies: dyspnea GI: Reports: abdominal pain Medications/Allergies Home Medications Medication Instructions Recorded Confirmed Last Taken Type melatonin 5 mg capsule 5 mg PO DAILY PRN sleep 30 days 11/25/21 01/31/24 Unknown Rx #30 caps fluticasone 100 mcg-salmeterol 50 1 inh inhalation BID #60 ea 10/19/22 01/31/24 12/30/23 17:30 Rx mcg/dose blistr powdr for inhalation (Advair Diskus) pantoprazole 20 mg tablet,delayed 20 mg PO DAILY 90 days #90 tabs 03/16/23 01/31/24 12/30/23 11:00 Rx release ipratropium 0.5 mg-albuterol 3 mg 3 ml inhalation QID PRN wheezing 04/19/23 01/31/24 Unknown Rx (2.5 mg base)/3 mL nebulization #90 mL soln nebulizer machine #1 ea 04/19/23 01/31/24 Unknown Rx gabapentin 600 mg tablet 600 mg PO Q8H 90 days #270 tabs 08/29/23 01/31/24 12/30/23 11:00 Rx aspirin 81 mg chewable tablet 81 mg PO DAILY 90 days #90 tabs 09/04/23 01/31/24 12/30/23 11:00 Rx atorvastatin 80 mg tablet 80 mg PO DAILY 90 days #90 tabs 09/04/23 01/31/24 12/30/23 11:00 Rx metoprolol succinate 25 mg 12.5 mg (1/2 x 25 mg) PO DAILY 90 09/04/23 01/31/24 12/30/23 11:00 Rx tablet,extended release 24 hr days #90 tabs nitroglycerin 0.4 mg sublingual 0.4 mg sublingual Q5M PRN chest 09/04/23 01/31/24 Unknown Rx tablet pain 90 days #90 tabs prasugrel 10 mg tablet (Effient) 10 mg PO DAILY 90 days #90 tabs 09/04/23 01/31/24 12/30/23 11:00 Rx albuterol sulfate 90 mcg/actuation 2 puff inhalation Q6H PRN 11/21/23 01/31/24 Unknown Rx aerosol inhaler (ProAir HFA) shortness of breath or wheezing #8.5 grams citalopram 40 mg tablet 40 mg PO DAILY 90 days #90 tabs 11/21/23 01/31/24 12/30/23 11:00 Rx clonazepam 1 mg tablet 1 mg PO Q8H PRN anxiety 30 days 11/21/23 01/31/24 Unknown Rx #90 tabs fluticasone propionate 50 1 spray intranasal DAILY #16 grams 11/21/23 01/31/24 Unknown Rx mcg/actuation nasal spray,suspension (Flonase Allergy Relief) zolpidem 10 mg tablet 10 mg PO .nightly 30 days #30 tabs 11/21/23 01/31/24 Unknown Rx ferrous sulfate 325 mg (65 mg 325 mg PO DAILY 30 days #30 tabs 01/03/24 01/31/24 Unknown Rx iron) tablet amoxicillin 875 mg-potassium 1 tab PO BID #14 tabs 01/09/24 01/31/24 Unknown Rx clavulanate 125 mg tablet losartan 50 mg tablet 50 mg PO DAILY 01/09/24 01/31/24 Unknown History prednisone 20 mg tablet 20 mg PO DAILY 7 days #7 tabs 01/09/24 01/31/24 Unknown Rx Allergies Allergy/AdvReac Type Severity Reaction Status Date / Time No Known Allergies Allergy Verified 01/31/24 14:34 PFSH Acute 2 PFSH: Medical History Needs smoking cessation education STEMI (ST elevation myocardial infarction) Greater trochanteric bursitis of right hip Greater trochanteric bursitis of left hip Hip osteoarthritis PNA (pneumonia) COPD exacerbation Diffuse wheezing Overactive bladder Stress incontinence Sciatica Dental infection Sinusitis Encounter for smoking cessation counseling Allergic rhinitis Lumbar radiculopathy Colon polyp Patient reports several colon polyps removed at [facility], and states she has not had followup. History of ST elevation myocardial infarction (STEMI) STEMI with Stent Placement 08/31/2023 Treated at [facility] syndrome Vitamin D deficiency Fatigue Medication management UTI (urinary tract infection), bacterial Dysuria Pelvic pain Nausea Hypoactive bowel sounds Lower respiratory infection Shortness of breath Exposure to confirmed case of COVID-19 Chronic hip pain Insomnia GERD (gastroesophageal reflux disease) Conversion disorder Anxiety Depression COPD (chronic obstructive pulmonary disease) Surgical History History of heart artery stent Family History Father No problems noted. Denies family history of Anemia Social History Smoking and tobacco/nicotine status: current every day tobacco/nicotine user Alcohol intake: never Substance/Drug Use: never Vitals/I&O/Wt Last Vital Signs Temp 97.8 F 01/31/24 16:49 Pulse 70 01/31/24 19:52 Resp 16 01/31/24 19:52 BP 108/68 01/31/24 19:39 Pulse Ox 91 01/31/24 19:52 O2 Del Method Room Air 01/31/24 19:39 01/31/24 01/31/24 01/31/24 06:59 14:59 22:59 Intake Total 1000 / 1000 Balance 1000 / 1000 Weight last 48 hrs Weight 56.699 kg Physical Exam 2 Narrative: Patient is laying supine Complaint abdominal pain No sign of tenderness rigidity or guarding no sign of peritonitis Dehydrated Awake and alert GCS 15 Normal hemodynamics Pleasant Nonfocal neuroexam Data 01/31/24 17:35 01/31/24 17:35 Micro: Microbiology 01/31/24 17:38 Blood Culture - Preliminary Blood SPECIMEN COLLECTED 01/31/24 17:35 Blood Culture - Preliminary Blood SPECIMEN COLLECTED A&P Assessment and plan (1) Depression: Qualifiers: Depression Type: unspecified Qualified Code(s): F32.A - Depression, unspecified (2) Anxiety: (3) Coronary artery disease: Qualifiers: Coronary Disease-Associated Artery/Lesion type: [place] artery [place] vs. transplanted heart: [place] heart Associated angina: unspecified whether angina present Qualified Code(s): I25.10 - Atherosclerotic heart disease of [place] coronary artery without angina pectoris (4) GERD (gastroesophageal reflux disease): (5) Abdominal pain: (6) Normocytic anemia: Plan Abdominal pain Viral gastroenteritis CT abdomen pelvis unremarkable Lipase is high It could be related to gastroenteritis I do not see any sign of ischemic colitis Leukocytosis could be due to stress leukemoid reaction versus dehydration Patient is not endorsing nausea vomiting Check D-dimer Lactic acid is normal Hemodynamically stable I would not start any antibiotics for now I have asked the patient that if she gets 3 loose stools then we can check for C. difficile At home she has not noticed any diarrhea Check B12 and TSH Urine unremarkable Clear liquid diet for now DVT prophylaxis more Lives home with her family History of coronary disease status post none, active smoker, counseling needed at the time of discharge Review of records Patient has hiatal hernia, recent EGD was unremarkable other than hernia, colonoscopy showed internal hemorrhoids, iron deficiency anemia, stable Attestations 2 Medical Necessity Statement*: Anticipating discharge within 24 to 48 hours Diagnoses Depression, unspecified depression type F32.A Depression Type: unspecified Anxiety F41.9 Coronary artery disease involving [place] coronary artery of [place] heart, unspecified whether angina present I25.10 Coronary Disease-Associated Artery/Lesion type: [place] artery [place] vs. transplanted heart: [place] heart Associated angina: unspecified whether angina present GERD (gastroesophageal reflux disease) K21.9 Abdominal pain R10.9 Normocytic anemia D64.9
[2024-01-31 21:10] LABS: D Dimer 0.59 ug/mLFEU (0-0.59)
[2024-01-31 21:20] LABS: Estmated Average Glucose 82; Hemoglobin A1C 4.5 % (4.0-6.0)
[2024-01-31 21:35] LABS: Thyroid Stimulating Hormone 1.92 uIU/mL (0.27-4.20); Vitamin B12 901 pg/mL (232-1245)
[2024-01-31] MEDS: pantoprazole 40 mg SDV IVP (21:48)
[2024-01-31] MEDS: lactated ringers 1,000 ML 100 ML IV (21:48)
[2024-01-31] MEDS: morphine 4 mg/mL SDV 1 mL 2 MG IVP (21:57)
[2024-01-31 21:59] LABS: Troponin T (5th) Once < 6 ng/L (0-10)
--- NOTE | 2024-01-31 23:25 | ECG_ITS ---
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 Measurements Intervals [place] Rate: 70 P: 72 PA: 233 QRS: 65 QRSD: 75 T: 35 QT: 386 QTc: 417 Interpretive Statements SINUS RHYTHM WITH FIRST DEGREE AV BLOCK Compared to ECG 12/31/2023 20:17:16 First degree AV block now present T-wave abnormality no longer present Electronically Signed On 02-01-2024 8:14:52 CDT by Edgar Velasco M.D. [email or web address]
[2024-02-01] VITALS (13 sets, daily range): BP systolic 90–116; BP diastolic 52–66; PULSE 67–82; RESP 14–18; TEMP 36.4–36.9; O2SAT 90–98
[2024-02-01] MEDS: HYDROmorphone 1 mg/mL INJ 1 mL 0.400000000000000022 MG IVP (01:10)
[2024-02-01 05:00] LABS: Basophils % 0.3 %; Eosinophils # 0.1 10^3/uL (0.0-0.8); Eosinophils % 1.4 %; Hematocrit 30.7 % (36-47); Lymphocytes # 1.8 10^3/uL (0.8-4.8); Lymphocytes % 20.3 %; Mean Corpuscular HGB Conc 30.3 g/dL (30-55); Mean Corpuscular Hemoglobin 28.2 pg (27-33); Mean Platelet Volume 10.1 fL (7.4-10.4); Monocytes # 0.7 10^3/uL (0.2-0.9); Monocytes % 8.2 %; Neutrophils # 6.06 10^3/uL (1.8-7.7); Neutrophils % 69.6 %; Nucleated Red Blood Cells % 0 %; Platelet Count 210 10^3/cmm (157-399); White Blood Count 8.71 10^3/uL (3.29-11.43)
[2024-02-01 05:34] LABS: Alanine Aminotransferase 16 U/L (0-33); Albumin Level 3.4 g/dL (3.5-5.2); Alkaline Phosphatase 139 U/L (35-105); Anion Gap 15.1 (5-19); Aspartate Amino Transferase 20 U/L (0-32); Blood Urea Nitrogen 7 mg/dL (8-23); C Reactive Protein 43.3 mg/L (0.0-4.9); Calcium 8.2 mg/dL (8.5-10.5); Carbon Dioxide 21 mmol/L (22-29); Chloride 108 mmol/L (98-107); Globulin 2.6 g/dL (1.3-4.6); Glomerular Filtration Rate 100.3 mL/min (90-130); Glucose 82 mg/dL (65-115); Magnesium 1.8 mg/dL (1.7-2.3); Osmolality Calculated 287 mOsm/kg (285-295); Phosphorus 2.9 mg/dL (2.5-4.5); Potassium 4.1 mmol/L (3.5-5.1); Sodium 140 mmol/L (136-145); Total Bilirubin 0.4 mg/dL (0.15-1.2)
[2024-02-01] MEDS: citalopram 20 mg Tablet 40 MG PO (08:28)
[2024-02-01] MEDS: pantoprazole 40 mg SDV IVP ×2 (08:29→17:18)
[2024-02-01] MEDS: aspirin 81 mg EC Tablet PO (08:29)
[2024-02-01] MEDS: lactated ringers 1,000 ML 100 ML IV (08:29)
[2024-02-01] MEDS: enoxaparin 40 mg/0.4 mL Syringe SUBCUT (08:29)
--- NOTE | 2024-02-01 09:43 | PC.CHAP ---
Pastoral Care Encounter/Spiritual Assessment Type of Contact [] Declined grant coordinator visit [] Patient/Family/Request visit [] Outpatient visit [] Follow-up visit [] Physician referral [] Code/Alert [] Routine visit [] Staff referral [] Actively dying [x] Patient sleeping [] Family support [] [] Out of room [] Palliative care [] [] Receiving care in room [] Pre-surgical visit [] Trauma [] Long length of stay [] ICU visit [] Other: Relational/Emotional Strength [] Patient feels connected with others/family/visitors/staff [] Distress [] Loneliness/isolation [] Abandonment Spirituality of Patient [] Person of Ruby [] Attends Mandaeism of their Ruby [] Believes in Prayer [] Reads Bible or Mormonism materials [] There are Spiritual issues to be addressed Stacker Straightener Interventions [] Prayer [] Active listening [] Non-anxious presence [] Spiritual/emotional support [] Crisis/trauma care [] Spiritual counseling [] Bereavement support [] Provided bereavement packet [] Provided Bible/devotional materials [] Provided toy/stuffed animal, coloring book to patient or family member [] Provided Communion [] Anointing/[place] [] Salvation [] Completed spiritual assessment [] Other: Impact on Illness or Injury [] Angry [] Fearful [] Anxious [] Often cries [] Exhaustion [] Unable to work [] Unable to attend pentecostalism [] Unable to walk/stand [] Unable to read [] Unable to drive [] Unable to eat/drink [] Unable to sleep [] Unable to be with family [] Patient intubated [] Other: Summary Time spent with patient
[2024-02-01 10:47] LABS: Troponin T (5th) Once < 6 ng/L (0-10)
--- NOTE | 2024-02-01 11:32 | CT_ITS ---
WS: [id number] CT chest wo con [id number] HISTORY: hypoxia TECHNIQUE: Axial imaging performed through the thorax. Coronal and sagittal reformats are submitted. All CT scans at [facility] use at least one of these dose optimization techniques: automated exposure control; mA and/or kV adjustment per patient size (includes targeted exams where dose is mat ched to clinical indication); or iterative reconstruction. CONTRAST: None DLP: 283.67 mGy.cm COMPARISON: None available. Lungs and central airway: Advanced centrilobular emphysema. Micronodule LEFT upper lobe. Noncalcified 8 mm nodule RIGHT lower lobe. 5 mm subpleural nodule RIGHT lower lobe. Pleura: Small RIGHT pleural effusion. Heart and pericardium: Normal size heart with no pericardial effusion. Mediastinum and blaine: Small mediastinal and hilar lymph nodes. No adenopathy. Vessels: Mild atherosclerosis aorta. Normal sized pulmonary artery. Chest wall and lower neck: No soft tissue masses. Upper abdomen: Increased density in the gallbladder from vicarious excretion of contrast. Suprarenal mild atherosclerotic calcification. No adrenal mass. Osseous structures: No destructive process. IMPRESSION: 1. No pneumonia. 2. Small RIGHT pleural effusion. 3. RIGHT lower lobe pulmonary nodules, largest nodule is 8 mm. Indeterminate solid pulmonary nodule measuring 8 mm. In a high-risk patient with a solid nodule of 6- 8 mm, recommend CT at 6-12 months. If stable, then CT at 18-24 months.
--- NOTE | 2024-02-01 11:34 | PM.PN ---
Subjective Subjective: Seen this morning. Patient requiring 3 L nasal cannula saturating 92%. Does carry a history of COPD and is on nebulization treatments and inhalers at home. Abdominal pain is better. Says has been drinking a lot of sweet tea lately. Vitals/I&O/Wt Last Vital Signs Temp 98.4 F 02/01/24 08:00 Pulse 72 02/01/24 08:17 Resp 17 02/01/24 08:17 BP 106/66 02/01/24 08:00 Pulse Ox 92 02/01/24 08:17 O2 Del Method Nasal Cannula 02/01/24 08:17 O2 Flow Rate 3 02/01/24 08:17 01/31/24 02/01/24 02/01/24 22:59 06:59 14:59 Intake Total 2120 / 0 1240 / 1240 Balance 2119 / 2119 1240 / 1240 Weight last 48 hrs Weight 61.49 kg Weight 56.699 kg Weight 56.699 kg Physical Exam Narrative: Patient is laying supine Abdomen nontender, soft No sign of tenderness rigidity or guarding no sign of peritonitis Awake and alert GCS 15 Normal hemodynamics Pleasant Nonfocal neuroexam Clear to auscultation bilaterally however decreased bilateral air entry. Data 02/01/24 04:34 02/01/24 04:34 Micro: Microbiology 01/31/24 17:38 Blood Culture - Preliminary Blood SPECIMEN COLLECTED 01/31/24 17:35 Blood Culture - Preliminary Blood SPECIMEN COLLECTED A&P Assessment and plan (1) Depression: Qualifiers: Depression Type: unspecified Qualified Code(s): F32.A - Depression, unspecified (2) Anxiety: (3) Coronary artery disease: Qualifiers: Coronary Disease-Associated Artery/Lesion type: [place] artery [place] vs. transplanted heart: [place] heart Associated angina: unspecified whether angina present Qualified Code(s): I25.10 - Atherosclerotic heart disease of [place] coronary artery without angina pectoris (4) GERD (gastroesophageal reflux disease): (5) Abdominal pain: (6) Normocytic anemia: Plan #Abdominal pain -resolved Viral gastroenteritis CT abdomen pelvis unremarkable Lipase is high It could be related to gastroenteritis I do not see any sign of ischemic colitis Leukocytosis could be due to stress leukemoid reaction versus dehydration Patient is not endorsing nausea vomiting D-dimer 0.59. Lactic acid is normal Hemodynamically stable Denies diarrhea. Troponins are negative Check B12 and TSH Urine unremarkable #COPD Acute hypoxia requiring oxygen 3 L. ? Will check chest CT at this time. Patient does have decreased bilateral air entry. ? Will order Solu-Medrol 40 twice daily IV ? Add azithromycin x 5 days total. ? Will require home oxygen evaluation at discharge. Lives home with her family History of coronary disease status post none, active smoker, counseling needed at the time of discharge Review of records Patient has hiatal hernia, recent EGD was unremarkable other than hernia, colonoscopy showed internal hemorrhoids, iron deficiency anemia, stable Full code DVT prophylaxis: SCDs Attestations Medical Necessity Statement*: Anticipating discharge within 24 to 48 hours Diagnoses Depression, unspecified depression type F32.A Depression Type: unspecified Anxiety F41.9 Coronary artery disease involving [place] coronary artery of [place] heart, unspecified whether angina present I25.10 Coronary Disease-Associated Artery/Lesion type: [place] artery [place] vs. transplanted heart: [place] heart Associated angina: unspecified whether angina present GERD (gastroesophageal reflux disease) K21.9 Abdominal pain R10.9 Normocytic anemia D64.9
[2024-02-01] MEDS: ipratropium-albuterol 3 mL Neb INHALATION ×3 (11:47→20:48)
[2024-02-01] MEDS: methylPREDNISolone sod succ 40 mg/mL INJ IVP (11:56)
[2024-02-01] MEDS: atorvastatin 40 mg Tablet PO (20:59)
[2024-02-01] MEDS: morphine 4 mg/mL SDV 1 mL 2 MG IVP (22:32)
[2024-02-02] VITALS (10 sets, daily range): BP systolic 100–158; BP diastolic 60–90; PULSE 80–114; RESP 16–17; TEMP 36.6–36.8; O2SAT 90–94
[2024-02-02] MEDS: methylPREDNISolone sod succ 40 mg/mL INJ IVP ×2 (01:01→12:30)
[2024-02-02] MEDS: lactated ringers 1,000 ML 100 ML IV ×2 (01:01→09:40)
[2024-02-02 03:49] LABS: Basophils % 0.1 %; Hematocrit 33.1 % (36-47); Lymphocytes # 0.5 10^3/uL (0.8-4.8); Lymphocytes % 6.8 %; Mean Corpuscular HGB Conc 30.5 g/dL (30-55); Mean Corpuscular Hemoglobin 28.2 pg (27-33); Mean Corpuscular Volume 92.5 fl (85-98); Monocytes % 0.4 %; Neutrophils # 6.87 10^3/uL (1.8-7.7); Neutrophils % 92.3 %; Nucleated Red Blood Cells % 0 %; Platelet Count 220 10^3/cmm (157-399); Red Blood Count 3.58 10^6/uL (3.85-5.65); Red Cell Distribution Width 21.7 % (12.1-15.1); White Blood Count 7.45 10^3/uL (3.29-11.43)
[2024-02-02 04:25] LABS: Anion Gap 15.2 (5-19); Blood Urea Nitrogen 7 mg/dL (8-23); Calcium 9.3 mg/dL (8.5-10.5); Carbon Dioxide 23 mmol/L (22-29); Chloride 107 mmol/L (98-107); Glomerular Filtration Rate 100.3 mL/min (90-130); Glucose 139 mg/dL (65-115); Osmolality Calculated 292 mOsm/kg (285-295); Potassium 4.2 mmol/L (3.5-5.1); Sodium 141 mmol/L (136-145)
[2024-02-02] MEDS: ipratropium-albuterol 3 mL Neb INHALATION ×2 (07:38→11:18)
[2024-02-02] MEDS: aspirin 81 mg EC Tablet PO (09:37)
[2024-02-02] MEDS: citalopram 20 mg Tablet 40 MG PO (09:37)
[2024-02-02] MEDS: acetaminophen 500 mg Tablet PO (09:38)
[2024-02-02] MEDS: enoxaparin 40 mg/0.4 mL Syringe SUBCUT (09:38)
[2024-02-02] MEDS: pantoprazole 40 mg SDV IVP (09:39)
[2024-02-02] MEDS: azithromycin 250 mg Tablet 500 MG PO (12:30)
[2024-02-02] MEDS: morphine 4 mg/mL SDV 1 mL 2 MG IVP (12:30)
--- NOTE | 2024-02-02 13:08 | P.DS_ITS ---
Discharge Providers Date of Admission: 01/31/24 19:49 Date of Discharge: February 02, 2024 Attending Provider at Admission: Bettie Coley MD Attending Provider at Discharge: Joaquina Naki MD Diagnoses at Discharge Discharge Diagnosis (1) Depression: Status: Acute Qualifiers: Depression Type: unspecified Qualified Code(s): F32.A - Depression, unspecified (2) Anxiety: Status: Chronic (3) Coronary artery disease: Status: Acute Qualifiers: Associated angina: unspecified whether angina present Coronary Disease- Associated Artery/Lesion type: [place] artery [place] vs. transplanted heart: [place] heart Qualified Code(s): I25.10 - Atherosclerotic heart disease of [place] coronary artery without angina pectoris (4) GERD (gastroesophageal reflux disease): Status: Acute (5) Abdominal pain: Status: Acute (6) Normocytic anemia: Status: Acute Reason for Visit Reason for Visit: weakness, uti Hospital Course Hospital Course Admitted for viral gastroenteritis abdominal pain which resolved with IV fluids. She improved next morning however was requiring 3 L of oxygen. Is have a history of COPD in the past. Active smoker. ? Was treated for COPD exacerbation with Solu-Medrol 40 twice daily and azithromycin which was also given at discharge. Patient was discharged home on steroids and antibiotic. She was back to room air at discharge. Albuterol refill was given. All questions answered. Discharged home in stable condition to follow-up with primary care doctor outpatient. ? CT chest was done during hospital stay which revealed a pulmonary nodule 8 mm. She was given pulmonary referral for that. Physical Exam Narrative: Patient is laying supine Abdomen nontender, soft No sign of tenderness rigidity or guarding no sign of peritonitis Awake and alert GCS 15 Normal hemodynamics Pleasant Nonfocal neuroexam Clear to auscultation bilaterally Discharge Data Studies Completed and Pending Completed Studies During Hospitalization Category Date Time Status CT abdomen pelvis w con* [id number] Stat Cat Scan 01/31/24 17:[address] chest wo con [id number] Routine Cat Scan 02/01/24 11:32 Completed XR chest 1V portable [id number] Stat Exams 01/31/24 17:06 Completed Pending at discharge Category Date Time Status Blood Culture Stat Lab 01/31/24 17:38 Results Radiology Impressions Abdomen/Pelvis CT 01/31/24 17:06 IMPRESSION: 1. No acute intra-abdominal or pelvic process. 2. Other nonemergent findings above. COMMENTS: Consistent with the [employer]'s Incidental Findings Committee white paper (J Am Karri Radiol 2018): Any incidental renal lesion less than 1 cm or classified as too small to characterize, or any incidental cystic renal lesion characterized as simple-appearing, is likely benign. No follow-up imaging is recommended for these lesions per consensus recommendations based on imaging criteria. Chest X-Ray 01/31/24 17:06 IMPRESSION: No acute cardiopulmonary disease. Laboratory Results WBC 7.45 10^3/uL (3.29-11.43) 02/02/24 02:56 RBC 3.58 10^6/uL (3.85-5.65) L 02/02/24 02:56 Hgb 10.10 g/dL (11.27-16.99) L 02/02/24 02:56 Hct 33.1 % (36-47) L 02/02/24 02:56 MCV 92.5 fl (85-98) 02/02/24 02:56 MCH 28.2 pg (27-33) 02/02/24 02:56 MCHC 30.5 g/dL (30-55) 02/02/24 02:56 RDW 21.7 % (12.1-15.1) H 02/02/24 02:56 Plt Count 220 10^3/cmm (157-399) 02/02/24 02:56 MPV 10.0 fL (7.4-10.4) 02/02/24 02:56 Neut % (Auto) 92.3 % 02/02/24 02:56 Lymph % (Auto) 6.8 % 02/02/24 02:56 [place] % (Auto) 0.4 % 02/02/24 02:56 Eos % (Auto) 0.0 % 02/02/24 02:56 Baso % (Auto) 0.1 % 02/02/24 02:56 Neut # (Auto) 6.87 10^3/uL (1.8-7.7) 02/02/24 02:56 Lymph # (Auto) 0.5 10^3/uL (0.8-4.8) L 02/02/24 02:56 [place] # (Auto) 0.0 10^3/uL (0.2-0.9) L 02/02/24 02:56 Eos # (Auto) 0.0 10^3/uL (0.0-0.8) 02/02/24 02:56 Baso # (Auto) 0.0 10^3/uL (0.0-0.1) 02/02/24 02:56 Nucleated RBC % (auto) 0 % 02/02/24 02:56 Nucleated RBCs # 0.0 /100WBC 02/02/24 02:56 D-Dimer 0.59 ug/mLFEU (0-0.59) 01/31/24 17:35 Sodium 141 mmol/L (136-145) 02/02/24 02:56 Potassium 4.2 mmol/L (3.5-5.1) 02/02/24 02:56 Chloride 107 mmol/L (98-107) 02/02/24 02:56 Carbon Dioxide 23 mmol/L (22-29) 02/02/24 02:56 Anion Gap 15.2 (5-19) 02/02/24 02:56 BUN 7 mg/dL (8-23) L 02/02/24 02:56 Creatinine 0.6 mg/dL (0.5-0.9) 02/02/24 02:56 GFR Calculation 100.3 mL/min (90-130) 02/02/24 02:56 Glucose 139 mg/dL (65-115) H 02/02/24 02:56 Estimat Average Glucose 82 01/31/24 17:35 Hemoglobin A1c 4.5 % (4.0-6.0) 01/31/24 17:35 Calculated Osmolality 292 mOsm/kg (285-295) 02/02/24 02:56 Lactic Acid 1.1 mmol/L (0.5-2.2) 01/31/24 17:35 Calcium 9.3 mg/dL (8.5-10.5) 02/02/24 02:56 Phosphorus 2.9 mg/dL (2.5-4.5) 02/01/24 04:34 Magnesium 1.8 mg/dL (1.7-2.3) 02/01/24 04:34 Total Bilirubin 0.4 mg/dL (0.15-1.2) 02/01/24 04:34 AST 20 U/L (0-32) 02/01/24 04:34 ALT 16 U/L (0-33) 02/01/24 04:34 Alkaline Phosphatase 139 U/L (35-105) H 02/01/24 04:34 Troponin T 5th Gen ng/L < 6 ng/L (0-10) 02/01/24 10:03 C-Reactive Protein 43.3 mg/L (0.0-4.9) H 02/01/24 04:34 Total Protein 6.0 g/dL (6.6-8.7) L 02/01/24 04:34 Albumin 3.4 g/dL (3.5-5.2) L 02/01/24 04:34 Globulin 2.6 g/dL (1.3-4.6) 02/01/24 04:34 Lipase 167 U/L (13-60) H 01/31/24 17:35 Vitamin B12 901 pg/mL (232-1245) 01/31/24 17:35 TSH 1.92 uIU/mL (0.27-4.20) 01/31/24 17:35 Urine Color Yellow (Yellow) 01/31/24 17:45 Urine Appearance Clear (CLEAR) 01/31/24 17:45 Urine pH 6 (5-7) 01/31/24 17:45 Ur Specific [place] 1.015 (1.005-1.030) 01/31/24 17:45 Urine Protein Neg (Negative) 01/31/24 17:45 Urine Glucose (UA) Norm (Normal) 01/31/24 17:45 Urine Ketones Negative (Negative) 01/31/24 17:45 Urine Blood Neg (Negative) 01/31/24 17:45 Urine Nitrate Negative (Negative) 01/31/24 17:45 Urine Bilirubin Neg (Negative) 01/31/24 17:45 Urine Urobilinogen Norm mg/dL (Negative) 01/31/24 17:45 Ur Leukocyte Esterase Negative (Negative) 01/31/24 17:45 Vitals Last Vital Signs Temp 97.8 F 02/02/24 12:00 Pulse 114 H 02/02/24 12:00 Resp 16 02/02/24 12:30 BP 127/90 02/02/24 12:00 Pulse Ox 94 02/02/24 12:00 O2 Del Method Room Air 02/02/24 12:00 O2 Flow Rate 3 02/01/24 20:48 Discharge Plan Discharge Patient Disposition: Home Condition: Stable Prescriptions: New azithromycin 250 mg Tablet 500 mg PO DAILY Qty: 4 0RF prednisone 20 mg tablet 40 mg PO DAILY 3 Days Qty: 6 0RF Protonix [address] for susp in packet 40 mg PO DAILY 14 Days Qty: 15 0RF Continued melatonin 5 mg capsule 5 mg PO DAILY PRN (Reason: sleep) 30 Days Qty: 30 1RF gabapentin 600 mg tablet 600 mg PO Q8H 90 Days Qty: 270 1RF clonazepam 1 mg tablet 1 mg PO Q8H PRN (Reason: anxiety) 30 Days Qty: 90 2RF fluticasone propionate [Flonase Allergy Relief] 50 mcg/actuation spray,suspension 1 spray intranasal DAILY Qty: 16 5RF Rx Instructions: administer into each nostril (DME) nebulizer machine See Rx Instructions .Route .MEDSUPPLY Qty: 1 0RF Rx Instructions: As directed ipratropium-albuterol 0.5 mg-3 mg(2.5 mg base)/3 mL solution for nebulization 3 ml inhalation QID PRN (Reason: wheezing) Qty: 90 0RF nitroglycerin 0.4 mg tablet, sublingual 0.4 mg sublingual Q5M PRN (Reason: chest pain) 90 Days Qty: 90 0RF Rx Instructions: do not exceed 3 doses per episode prasugrel [Effient] 10 mg tablet 10 mg PO DAILY 90 Days Qty: 90 1RF losartan 50 mg tablet 50 mg PO QAM atorvastatin 80 mg tablet 80 mg PO QAM citalopram 40 mg tablet 40 mg PO QAM ferrous sulfate 325 mg (65 mg iron) tablet 325 mg PO QAM aspirin 81 mg tablet,chewable 81 mg PO QAM metoprolol succinate 25 mg tablet extended release 24 hr 12.5 mg PO QAM zolpidem 10 mg tablet 10 mg PO QPM ProAir HFA 90 mcg/actuation HFA aerosol inhaler 2 puff inhalation Q6H PRN (Reason: shortness of breath or wheezing) Qty: 8.5 3RF Discharge Orders: Discharge Order (Routine); Ordered 02/02/24 Ordered By: Joaquina Naik Referrals: Shashi Grullon MD [Physician] - 1 month (pulm nodule) ALLEN Molina FNP [Nurse Practitioner] - 02/07/24 10:00 am Discharge Diet: Cardiac Discharge Activity: Resume usual activity Patient Instructions: Prednisone (By mouth), Azithromycin (By mouth), Pantoprazole (By mouth), Abdominal Pain (ED), Opioid Safety Discharge Attestations Time Spent in Discharge Care*: greater than 30 min Quality Metrics Clinical Quality Measures [ No reported AMI, CVA or VTE this stay] Coding Level of Care Code Acute Code for Chg Fwd Diagnoses Depression, unspecified depression type F32.A Depression Type: unspecified Anxiety F41.9 Coronary artery disease involving [place] coronary artery of [place] heart, unspecified whether angina present I25.10 Associated angina: unspecified whether angina present Coronary Disease-Associated Artery/Lesion type: [place] artery [place] vs. transplanted heart: [place] heart GERD (gastroesophageal reflux disease) K21.9 Abdominal pain R10.9 Normocytic anemia D64.9
== END 2024-02-02 14:09 | disposition home or self-care (01) ==
LOC: ER 19:16 → MEDSURG 22:28
PROVIDERS: Family Medicine; Admitting Provider Internal Medicine; Emergency Provider Internal Medicine; Visit Provider Internal Medicine
DX: A08.4 Viral intestinal infection, unspecified (principal); J44.1 Chronic obstructive pulmonary disease with (acute) exacerbation; F32.A Depression, unspecified; F41.9 Anxiety disorder, unspecified; I25.10 Atherosclerotic heart disease of native coronary artery without angina pectoris; K21.9 Gastro-esophageal reflux disease without esophagitis; D64.9 Anemia, unspecified; K44.9 Diaphragmatic hernia without obstruction or gangrene; J90 Pleural effusion, not elsewhere classified; R91.1 Solitary pulmonary nodule; F17.200 Nicotine dependence, unspecified, uncomplicated
CPT/HCPCS: 36415; 71045; 71250; 74177; 80048; 80053; 81000; 81003; 82607; 83036; 83605; 83690; 83735; 84100; 84443; 84484; 85025; 85378; 86140; 87040; 93005; 94640; 96361; 96372; 96374; 96375; 99285; C9113; G0378; J1170; J1650; J2270; J2405; J2920; J3010; J7030; J7120; Q0144; Q9967

== ENCOUNTER → 2024-02-11 09:03 | Outpatient (BNVA) | payer MEDICARE, SELFPAY | PROVIDERS: PCP Nurse Practitioner Family; Visit Provider Nurse Practitioner Family | DX: R10.9 Unspecified abdominal pain (principal); F41.9 Anxiety disorder, unspecified; D50.9 Iron deficiency anemia, unspecified; J44.9 Chronic obstructive pulmonary disease, unspecified; K63.5 Polyp of colon | CPT/HCPCS: 80053; 81003; 82728; 83550; 83690; 85025; 87086 ==

== ENCOUNTER → 2024-06-26 15:17 | Outpatient (BNVA) | payer OTHER, MEDICARE, SELFPAY | PROVIDERS: PCP Nurse Practitioner Family; Visit Provider Nurse Practitioner Family | DX: D64.9 Anemia, unspecified (principal); Z79.899 Other long term (current) drug therapy | CPT/HCPCS: 80053; 81003; 82728; 83550; 85025 ==

== ENCOUNTER → 2024-07-09 12:14 | Outpatient (BNVA) | payer OTHER, MEDICARE, SELFPAY | PROVIDERS: PCP Nurse Practitioner Family; Visit Provider Nurse Practitioner Family | DX: M19.90 Unspecified osteoarthritis, unspecified site (principal); M06.9 Rheumatoid arthritis, unspecified | CPT/HCPCS: 86038; 86200; 86431 ==

== ENCOUNTER → 2024-08-06 09:52 | Outpatient (BNVA) | payer MEDICARE, OTHER, SELFPAY | PROVIDERS: PCP Nurse Practitioner Family; Visit Provider Nurse Practitioner Family | DX: Z20.822 Contact with and (suspected) exposure to COVID-19 (principal) | CPT/HCPCS: 87426 ==

== ENCOUNTER → 2024-08-20 10:03 | Outpatient (BNVA) | payer MEDICARE, OTHER, SELFPAY | PROVIDERS: PCP Nurse Practitioner Family; Visit Provider Nurse Practitioner Family | DX: D50.9 Iron deficiency anemia, unspecified (principal) | CPT/HCPCS: 83550; 85025 ==

== ENCOUNTER → 2024-08-29 13:30 | Outpatient (BNVA) | payer MEDICARE, OTHER, SELFPAY | PROVIDERS: PCP Nurse Practitioner Family; Visit Provider Nurse Practitioner Family | DX: N39.0 Urinary tract infection, site not specified (principal); A49.9 Bacterial infection, unspecified | CPT/HCPCS: 81000 ==

== ENCOUNTER → 2024-09-23 09:25 | Outpatient (BNVA) | payer OTHER, SELFPAY | PROVIDERS: PCP Nurse Practitioner Family; Visit Provider Nurse Practitioner Family | DX: R10.32 Left lower quadrant pain (principal) | CPT/HCPCS: 74018 ==

== ENCOUNTER 2024-09-24 14:20 | Outpatient (CLI) | payer OTHER, SELFPAY ==
--- NOTE | 2024-09-24 14:20 | MM_ITS ---
WS: [id number] BILATERAL 3D TOMOSYNTHESIS DIGITAL SCREENING MAMMOGRAPHY WITH CAD CLINICAL INFORMATION: Z12.39 - Encounter for other screening for malignant neop... HISTORY: Screening mammogram. No current complaints. COMPARISON: New baseline TECHNIQUE: Bilateral CC and MLO views. FINDINGS: Scattered fibroglandular densities bilaterally. No suspicious focal mass, asymmetry, calcifications, or architectural distortion. No evidence of malignancy. Few incidental punctate and lucent centered c alcifications. MM/MM [facility] tomosynthesis [id number] IMPRESSION: DENSITY: There are scattered areas of fibroglandular density. BI-RADS: 2 - Benign. FOLLOW UP: 1 Year Follow-up Recommend return to annual screening mammography.
== END 2024-09-24 14:21 | disposition home or self-care (01) ==
LOC: MOBLMAM 14:23
PROVIDERS: PCP Nurse Practitioner Family; Visit Provider Nurse Practitioner Family
DX: Z12.31 Encounter for screening mammogram for malignant neoplasm of breast (principal); R92.323 Mammographic fibroglandular density, bilateral breasts; R92.1 Mammographic calcification found on diagnostic imaging of breast
CPT/HCPCS: 77063; 77067

== ENCOUNTER → 2024-12-02 10:12 | Outpatient (BNVA) | payer MEDICARE, SELFPAY | PROVIDERS: PCP Nurse Practitioner Family; Visit Provider Nurse Practitioner Family | DX: Z13.6 Encounter for screening for cardiovascular disorders (principal); D50.9 Iron deficiency anemia, unspecified; Z79.899 Other long term (current) drug therapy | CPT/HCPCS: 80053; 80061; 82306; 83036; 83550; 84443; 85025 ==

== ENCOUNTER 2025-01-02 07:59 | Oncology outpatient (recurring) (ONCR) | payer MEDICARE, SELFPAY ==
[2024-12-24 14:19] VITALS: BP 97/66; PULSE 67; RESP 18; TEMP 36.4; O2SAT 93
[2024-12-24] MEDS: iron sucrose 200 MG in sodium chloride 0.9% 50 ML 240 MG IV (14:37)
[2024-12-24 15:25] VITALS: BP 96/68; PULSE 82; RESP 18; TEMP 36.6; O2SAT 95
[2024-12-26] MEDS: iron sucrose 200 MG in sodium chloride 0.9% 50 ML 240 MG IV (09:44)
[2024-12-26 10:18] VITALS: BP 134/85; PULSE 66; RESP 17; TEMP 36.1; O2SAT 91
[2024-12-29 08:00] VITALS: BP 109/71; PULSE 78; RESP 18; TEMP 35.7; O2SAT 93
[2024-12-29] MEDS: iron sucrose 200 MG in sodium chloride 0.9% 50 ML 240 MG IV (08:29)
[2024-12-29 08:49] VITALS: BP 109/71; PULSE 60; RESP 18; TEMP 36.1; O2SAT 95
[2024-12-31 14:31] VITALS: BP 100/70; PULSE 78; RESP 16; TEMP 35.9; O2SAT 95
[2024-12-31] MEDS: iron sucrose 200 MG in sodium chloride 0.9% 50 ML 240 MG IV (14:52)
[2025-01-02 08:12] VITALS: BP 114/74; PULSE 78; RESP 17; TEMP 36.4; O2SAT 95
[2025-01-02] MEDS: iron sucrose 200 MG in sodium chloride 0.9% 50 ML 240 MG IV (08:32)
[2025-01-02 09:02] VITALS: BP 121/68; PULSE 70; RESP 18; TEMP 36.4; O2SAT 95
== END 2025-01-16 23:59 | disposition home or self-care (01) ==
PROVIDERS: PCP Nurse Practitioner Family; Visit Provider Nurse Practitioner Family
DX: K90.9 Intestinal malabsorption, unspecified (principal); E61.1 Iron deficiency; Z79.899 Other long term (current) drug therapy
CPT/HCPCS: 96365; J1756

== ENCOUNTER → 2025-02-02 10:44 | Outpatient (BNVA) | payer MEDICARE, SELFPAY | PROVIDERS: PCP Nurse Practitioner Family; Visit Provider Nurse Practitioner Family | DX: D50.9 Iron deficiency anemia, unspecified (principal) | CPT/HCPCS: 82728; 83550; 85025 ==

== ENCOUNTER 2025-02-18 11:56 | Outpatient (CLI) | payer MEDICARE, SELFPAY ==
--- NOTE | 2025-02-18 12:25 | XR_ITS ---
WS: [email or web address] XR lumbar spine 6V w f/e [id number] REASON FOR EXAM: M51.369 - Other intervertebral disc degeneration, lumbar ... FINDINGS: Severe dextroscoliosis. Straightening of the normal lordosis. No significant vertebral body compression deformity. Moderate to significant narrowing of the intervertebral disc spaces L1-S1. Most severe at L1-L2 and L4-L5. No spondylolysis identified. Minimal anterolisthesis of L1 in relation to T12 and L4 in relation to L3. XR/XR lumbar spine 6V w f/e [id number] IMPRESSION: Degenerative spondylosis as above.
--- NOTE | 2025-02-18 12:25 | XR_ITS ---
WS: [email or web address] XR hip LT 2-3V wo/w pel* [id number] REASON FOR EXAM: M16.0 - Bilateral primary osteoarthritis of hip FINDINGS: No fracture or focal bone lesion. Moderate to significant narrowing of the joint space with moderate subchondral sclerosis and osteophytosis of the acetabulum. Significant osteophytosis of the femoral head. No soft tissue abnormality. XR/XR hip LT 2-3V wo/w pel* [id number] IMPRESSION: Moderate to significant osteoarthritis of the left hip.
--- NOTE | 2025-02-18 12:25 | XR_ITS ---
WS: [email or web address] XR hip RT 2-3V wo/w pel* [id number] REASON FOR EXAM: M16.0 - Bilateral primary osteoarthritis of hip FINDINGS: No fracture or focal bone lesion. Moderate to significant narrowing of the joint space with moderate subchondral sclerosis and osteophytosis of the acetabulum. Significant osteophytosis of the femoral head. No soft tissue abnormality. XR/XR hip RT 2-3V wo/w pel* [id number] IMPRESSION: Moderate to significant osteoarthritis of the right hip.
--- NOTE | 2025-02-18 12:30 | CT_ITS ---
WS: [email or web address] CT chest w con* [id number] HISTORY: R91.8 - Other nonspecific abnormal finding of lung field TECHNIQUE: Axial imaging performed through the thorax. Coronal and sagittal reformats are submitted. All CT scans at [facility] use at least one of these dose optimization techniques: automated exposure control; mA and/or kV adjustment per patient size (includes targeted exams where dose is matched to clinical indication); or iterative reconstruction. CONTRAST: Omnipaque 350; 100 mL IV. DLP: 277.71 mGy.cm COMPARISON: 02/01/2024 Lungs and central airway: Advanced centrilobular emphysema. No interval change in the 8 mm RIGHT lower lobe pulmonary nodule which is noncalcified. No change in the pleural 5 mm nodule in the RIGHT lower lobe. There is an additional very tiny pleural nodule of 3 mm in the posterior RIGHT lower lobe which was obscured by pleural fluid on the prior study. Additional 2 mm nodule in the RIGHT middle lobe is stable. No new or enlarging pulmonary mass or nodule. Pleura: Small RIGHT pleural effusion has resolved. Heart and pericardium: Normal size heart with no pericardial effusion. Mediastinum and blaine: No mediastinum or hilar adenopathy. Vessels: Mild atherosclerosis aorta. No aneurysm. Normal size pulmonary artery. Chest wall and lower neck: No soft tissue masses. Upper abdomen: Visualized liver is normal. No adrenal mass. Osseous structures: Mild thoracic kyphosis with mild spondylosis. CT/CT chest w con* [id number] IMPRESSION: 1. Stable RIGHT lower lobe pulmonary nodule measuring 8 mm. Additional stable RIGHT middle lobe and pleural nodules. No new mass or nodule. Recommend 12-ange h follow-up chest CT. 2. Chronic emphysema. 3. Resolved RIGHT pleural effusion. 4. No adenopathy.
[2025-02-18] MEDS: iohexol 350 mg/mL 500 mL Btl (per mL) IV (12:45)
[2025-02-18 13:00] LABS: Blood Urea Nitrogen 14 mg/dL (8-23); Glomerular Filtration Rate 71.8 mL/min (90-130)
== END 2025-02-18 11:57 | disposition home or self-care (01) ==
LOC: RAD 11:59
PROVIDERS: PCP Nurse Practitioner Family; Visit Provider Nurse Practitioner Family
DX: R91.8 Other nonspecific abnormal finding of lung field (principal); M16.0 Bilateral primary osteoarthritis of hip; M51.369 Other intervertebral disc degeneration, lumbar region without mention of lumbar back pain or lower extremity pain; J44.9 Chronic obstructive pulmonary disease, unspecified; Z72.0 Tobacco use; J43.2 Centrilobular emphysema; I70.0 Atherosclerosis of aorta; M40.294 Other kyphosis, thoracic region; M47.894 Other spondylosis, thoracic region
CPT/HCPCS: 71260; 72114; 73502; 82565; 84520